=== PATIENT | female | born 1955 | race African-American/Black ===

== ENCOUNTER 2020-07-01 10:56 | Outpatient (REF) | payer MEDICARE, MEDICAID, SELFPAY ==
[2020-07-01 14:35] LABS: Anion Gap 15 (12-20); Blood Urea Nitrogen 8 mg/dL (9-16); Calcium 8.1 mg/dL (8.4-10.2); Carbon Dioxide 27 mmol/L (22-29); Chloride 102 mmol/L (96-108); Estimated Glomerular Filt Rate > 60; Glucose Random 88 mg/dL (60-115); Potassium 3.8 mmol/L (3.3-5.1); Sodium 140 mmol/L (135-145)
[2020-07-01 15:19] LABS: Erythrocyte Sedimentation Rate 6 MM/HR (0-20)
[2020-07-02 05:43] LABS: Lyme Abs Screen <0.90 index
[2020-07-02 09:18] LABS: Syphilis Screen Nonreactive (Nonreactive)
== END 2020-07-01 10:57 | disposition home or self-care (01) ==
LOC: HO.10HDL 10:56
PROVIDERS: Visit Provider Psychiatry & Neurology Neurology
DX: G44.009 Cluster headache syndrome, unspecified, not intractable (principal)
CPT/HCPCS: 36415; 80048; 82550; 85652; 86618; 86780

== ENCOUNTER 2025-03-24 13:56 | Outpatient (AMB) | payer OTHER, MEDICAID, SELFPAY ==
--- NOTE | 2025-03-24 14:17 | A.OFFVIS_ITS ---
Intake Visit Reasons: 6m HPI Comments Details: 68 yo woman with intractable migraine headaches not responsive to multiple meds but responded well to Aimovig. Apparently she changed her insurance recently and Aimovig was not give to her. She required another approval. Without it, her head aches were happening again. She c/o of a headache every and all day. Her eyes were also hurting. [facility] Medical History (Updated 03/24/25 @ 14:19 by Heidi Ramos MD) Optic neuritis Blurred vision Migraine Asthma Review of Systems Narrative Every day headache Sleep: not at all. Every night 2-3 hrs of sleep Breathing: so so Mood: Not good, and angry Physical Exam Neuro Other: Mental Status: Alert and oriented to person, place, and time. Normal attention. Normal spontaneous speech, fluency, and comprehension. Cranial Nerves: CN II: Visual kaplan full to confrontation, visual acuity intact. CN III, IV, : Pupils equal, round, reactive to light and accommodation. Extraocular movements are normal. CN V: Facial sensation is normal. CN VII: Facial movements symmetrical. CN VIII: Hearing intact to bedside conversation is normal. CN IX, X: Palate elevates symmetrically. CN XI: Shoulder shrug and head turn symmetrical. CN XII: Tongue midline without atrophy or fasciculations. Motor: Deep tendon reflexes are absent. She is in a wheelchair. Extrapyramidal: Full facial expressions and blinking. No rigidity. Movements are appropriate with no tremor or abnormality. Speech: Normal; no dysarthria or tremor. Assessment & Plan Assessment & Plan (1) Migraine: Comment: Meds tried: verapamil, topiramate, gabapentin, duloxetine, fiorecet, tizanidine, baclofen, propranolol MRI brain at [facility] in October of 2013 WWO: minimal punctate WM hyperintensities. MRI brain WWO at [facility] in Jun 2020: mild to mod MVD Code(s): G43.909 - Migraine, unspecified, not intractable, without status migrainosus Category: Medical Qualifiers: Migraine type: without aura Status migrainosus presence: without status migrainosus Intractability: intractable Qualified Code(s): G43.019 - Migraine without aura, intractable, without status migrainosus Plan Impression: a: Chronic migraine/tension type headache b: Insomnia Rec: a: Aimovig 140mg SC every month, which has helped her while multiple other meds did not b: Amitryptiline 25mg one at night for sleep Medications: New amitriptyline 25 mg PO BEDTIME 90 tabs 0RF erenumab-aooe (Aimovig Autoinjector) 140 mg subcut QMONTH 1 mL 5RF Coding Level of Care Code Est Pt Level 4 (95709) Diagnoses Intractable migraine without aura and without status migrainosus G43.019 Migraine type: without aura Status migrainosus presence: without status migrainosus Intractability: intractable
--- OUTSIDE RECORDS SUMMARY | 2025-03-24 18:19 | XMS_ITS | Encounter Summary ---
Author Organization [facility] Address [address] [place] [address] Care Team Providers Care Wastewater Treatment Supervisor Name Role Phone Alice Trinh MD Primary Care Provider [phone] Encounter Details Date Type Department Care Team (Late st Contact Info) Description 03/14/2025 Lab Requisition [facility] - Main Lab [address] [facility] [place] [address] Ej Damon MD [address] [place] [address] [address] [place], [address] Chronic obstructive pulmonary disease, unspecified (CMS/HCC V24, CMS/HCC V28) Social History Tobacco Use Types Packs/Day Years Used Date Smoking Tobacco: Former Cigarettes 1 51.3 S tarted: 1973 Smokeless Tobacco: Never Alcohol Use Standard Drinks/Week Comments Not Currently 2.5 (1 standard drink = 0.6 oz p ure alcohol) Housing Instability Answer Date Recorde d Are you worried that in the next 2 months you may not have stable housing? No 10/22/2024 Food Access & Nutrition Answer Date Rec orded Do you have access to a vari ety of food including fruits and vegetables? Yes 10/22/2024 Health Literacy Answer Date Recorded How often do you need to hav e someone help you when you read instructions, pamphlets, or other written material from your doctor or pharmacy? Never 10/22/2024 Caregiver: How often do you need to have someone help you when you read instructions, pamphlets, or other written material from your doctor or pharmacy? Not on file 10/22/2024 Financial Risk Answer Date Recorded How hard is it for you to pa y for the very basics like food, housing, medical care, and air conditioning / heating? Somewhat hard 10/22/2024 Transportation Answer Date Recorded Has the lack of transportati on kept you from meetings, work, or from getting things needed for daily living? No Has the lack of transportati on kept you from medical appointments or from getting medications? Yes 10/22/2024 Social Isolation Answer Date Recorded How often do you feel lonely or isolated from those around you? Sometimes 10/22/2024 Food Risk Answer Date Recorded Within the past 12 months we worried whether our food would run out before we got money to buy more. Never true 10/22/2024 Within the past 12 months th e food we bought just didn't last and we didn't have money to get more. Never true 10/22/2024 Dependent Care Answer Date Recorded Do you need help finding or paying for care for your loved ones. For example, child therapist or elderly care for an older adult? No 10/22/2024 Education Answer Date Recorded Do you think completing more education or training, like finishing a GED, going to college, or learning a trade, would be helpful for you? No 10/22/2024 Employment and Income Answer Date Recor ded During the last four weeks, have you been actively looking for work? No 10/22/2024 Living Situation Answer Date Recorded What is your living situation? Unrecognized valu e 10/22/2024 Interpersonal Safety Answer Date Record ed Physical Abuse Unrecognized value 01/23/2025 Verbal Abuse Unrecognized value 01/23/2025 Comments No Sex and Gender Information Value Date Recorded Sex Assigned at Female 12/26/2024 2:10 PM EDT Legal Sex Female 4:28 AM EST Gender Identity Female 12/26/2024 2:04 PM EDT Sexual Orientation Straight 08/11/2024 10 :42 AM EDT documented as of this encounter Plan of Treatment Upcoming Encounters Date Type Department Care Team (Late st Contact Info) Description 03/31/2025 12:40 PM EST Office Visit [facility] [address] [place] [address] Juan Schneider NP [address] [place] [address] Center [address] [place] [phone] 04/14/2025 2:20 PM EST Office Visit Pulmonology - [place] [address] [place] [phone] Iman Rosado NP [address] [place] [address] documented as of this encounter Procedures Procedure Name Priority Date/Time Associated Diagnosis Comments COMPLETE BLOOD COUNT Routine 03/16/2025 5:55 AM EDT Chronic obstructive pulmonary disease, unspecified ([facility]/HCC V24, [facility] V28) BASIC METABOLIC PANEL Routine 03/16/2025 5:55 AM EDT Chronic obstructive pulmonary disease, unspecified (CMS/HCC V24, CMS/HCC V28) documented in this encounter Results * (ABNORMAL) Complete blood count (03/16/2025 5:55 AM EDT) [facility] WBC 9.5 4.8 - 10.8 K/mcL LAB HEMETOLOGY METHOD 03/16/2025 11:31 AM T [facility] RBC 3.60(L) 3.80 - 4.80 M/mcL LAB HEMETOLOGY METHOD 03/16/2025 11:31 AM [facility] Hemoglobin 10.5(L) 11.5 - 16.0 g/dL LAB HEMETOLOGY METHOD 03/16/2025 11:31 AM [facility] Hematocrit 33.5(L) 35.0 - 47.0 % LAB HEMETOLOGY METHOD 03/16/2025 11:31 AM T [facility] MCV 94.4 79.0 - 98.0 FL LAB HEMETOLOGY METHOD 03/16/2025 11:31 AM EDT [facility] MCH 29.6 27.0 - 32.0 pcg LAB HEMETOLOGY METHOD 03/16/2025 11:31 AM EDT [facility] MCHC 31.3(L) 32.0 - 37.0 g/dL LAB HEMETOLOGY METHOD 03/16/2025 11:31 AM EDT [facility] RDW 16.4(H) 11.0 - 15.0 % LAB HEMETOLOGY METHOD 03/16/2025 11:31 AM EDT [facility] Platelets 294 130 - 400 K/mcL LAB [facility]OLOG[facility]25 [facility] MPV 8.7 7.0 - 11.0 FL LAB HEMETOLOGY METHOD 03/16/2025 11:31 AM EDT [facility] NRBC 0.0 <1.0 % LAB HEMETOLOGY METHOD 03/16/2025 11:31 AM [facility] NRBC Absolute 0.00 <0.10 K/mcL LAB HEMETOLOGY METHOD 03/16/2025 11:31 AM [facility] Blood Venous blood specimen / Unknown Venipuncture / Unknown 03/16/2025 5:55 AM EDT 03/16/2025 11:14 AM EDT us Ej Damon MD LAB BLOOD ORDERABLES Final Resul t [facility] [address] [place] [address], * Basic metabolic panel (03/16/2025 5:55 AM EDT) Sodium 145 133 - 145 mmol/L LAB CHEMISTRY METHOD 03/16/2025 12:31 PM [facility] Potassium 3.9 3.5 - 5.5 mmol/L LAB CHEMISTRY METHOD 03/16/2025 12:31 PM [facility] Chloride 110 96 - 110 mmol/L LAB CHEMISTRY METHOD 03/16/2025 12:31 PM [facility] CO2 27 21 - 32 mmol/L LAB CHEMISTRY METHOD 03/16/2025 12:31 PM [facility] Anion Gap 8 3 - 11 LAB CHEMISTRY METHOD 03/16/2025 12:31 PM [facility] Glucose 76 70 - 100 mg/dL LAB CHEMISTRY METHOD 03/16/2025 12:31 PM [facility] BUN 22 5 - 25 mg/dL LAB CHEMISTRY METHOD 03/16/2025 12:31 PM [facility] Creatinine 0.96 0.50 - 1.10 mg/dL LAB CHEMISTRY METHOD 03/16/2025 12:31 PM [facility] eGFR 65 >=60 mL/min/1. 73m2 LAB CHEMISTRY METHOD 03/16/2025 12:31 PM [facility] Comment:Calculation based on the Chronic Kidney Disease Epidemiology Collaboration (CKD-EPI) equation refit without adjustment for race. BUN/Creatinine Ratio 22.9 LAB CHEMISTRY METHOD 03/16/2025 12:31 PM [facility] Calcium 8.6 8.5 - 10.5 mg/dL LAB CHEMISTRY METHOD 03/16/2025 12:31 PM [facility] Blood Venous blood specimen / Unknown Venipuncture / Unknown 03/16/2025 5:55 AM EDT 03/16/2025 11:14 AM EDT us Ej Damon MD LAB BLOOD ORDERABLES Final Resul t [facility] [address] [place] [address], [place] [phone] documented in this encounter Visit Diagnoses Diagnosis Chronic obstructive pulmonary disease, unspecified (CMS/HCC V24, CMS/HCC V28) documented in this encounter Additional Health Concerns Assessment Noted Time PHQ-9 Depression Total Score: 1 10/23/19 25 4:30 AM EDT documented as of this encounter Care Teams Wastewater Treatment Supervisor Relationship Specialty Start Date End Date Alice Trinh MD [address] [place] [address] PCP - General Internal Medicine 02/24/25 documented as of this encounter
--- OUTSIDE RECORDS SUMMARY | 2025-03-24 18:19 | XMS_ITS | Encounter Summary ---
Author Organization [facility] Address [address] [place] [address] Care Team Providers Care Operations Clerk Name Role Phone Alice Trinh MD Primary Care Provider [phone] Encounter Details Date Type Department Care Team (Late st Contact Info) Description 03/11/2025 Lab Requisition [facility] - Main Lab [address] [facility] [place] [address] Ej Damon MD [address] [place] [address] [address] [place], [address] Chronic obstructive pulmonary disease, unspecified (CMS/HCC [...] for your loved ones. For example, child care development specialist or elderly care for an older adult? [...] Description 03/31/2025 12:40 PM EST Office Visit [facility] [address] [place] [address] Juan Schneider NP Medical [facility] [address] [place] [phone] 04/14/2025 2:20 PM EST Office Visit Pulmonology - [place] [address] [place] [address] Iman Rosado NP [address] [place] [address] documented as of this encounter Procedures Procedure Name Priority Date/Time Associated Diagnosis Comments COMPLETE BLOOD COUNT Routine 03/11/2025 5:15 AM EDT Chronic obstructive pulmonary disease, unspecified ([facility]/HCC V24, CMS/HCC V28) COMPREHENSIVE METABOLIC PANEL Routine 03/11/2025 5:15 AM EDT Chronic obstructive pulmonary disease, unspecified (CMS/HCC V24, CMS/HCC V28) documented in this encounter Results * (ABNORMAL) Comprehensive metabolic panel (03/11/2025 5:15 AM EDT) Sodium 140 133 - 145 mmol/L LAB CHEMISTRY METHOD 03/11/2025 10:51 AM [facility] Potassium 4.2 3.5 - 5.5 mmol/L LAB CHEMISTRY METHOD 03/11/2025 10:51 AM [facility] Chloride 106 96 - 110 mmol/L LAB CHEMISTRY METHOD 03/11/2025 10:51 AM [facility] CO2 28 21 - 32 mmol/L LAB CHEMISTRY METHOD 03/11/2025 10:51 AM [facility] Anion Gap 6 3 - 11 LAB CHEMISTRY METHOD 03/11/2025 10:51 AM [facility] Glucose 83 70 - 100 mg/dL LAB CHEMISTRY METHOD 03/11/2025 10:51 AM [facility] BUN 17 5 - 25 mg/dL LAB CHEMISTRY METHOD 03/11/2025 10:51 AM [facility] Creatinine 0.80 0.50 - 1.10 mg/dL LAB CHEMISTRY METHOD 03/11/2025 10:51 AM [facility] eGFR 81 >=60 mL/min/1. 73m2 LAB CHEMISTRY METHOD 03/11/2025 10:51 AM [facility] Comment:Calculation based on the Chronic Kidney Disease Epidemiology Collaboration (CKD-EPI) equation refit without adjustment for race. BUN/Creatinine Ratio 21.3 LAB CHEMISTRY METHOD 03/11/2025 10:51 AM [facility] Calcium 8.6 8.5 - 10.5 mg/dL LAB CHEMISTRY METHOD 03/11/2025 10:51 AM [facility] AST (SGOT) 21 10 - 42 unit/L LAB CHEMISTRY METHOD 03/11/2025 10:51 AM [facility] ALT (SGPT) 34 10 - 60 unit/L LAB CHEMISTRY METHOD 03/11/2025 10:51 AM [facility] Alkaline Phosphatase 54 42 - 121 unit/L LAB CHEMISTRY METHOD 03/11/2025 10:51 AM [facility] Total Protein 5.1(L) 6.0 - 8.0 g/dL LAB CHEMISTRY METHOD 03/11/2025 10:51 AM [facility] Albumin 2.9(L) 3.2 - 5.0 g/dL LAB CHEMISTRY METHOD 03/11/2025 10:51 AM [facility] Total Bilirubin 0.2 0.0 - 1.4 mg/dL LAB CHEMISTRY METHOD 03/11/2025 10:51 AM [facility] Blood Venous blood specimen / Unknown Venipuncture / Unknown 03/11/2025 5:15 AM EDT 03/11/2025 9:37 AM EDT us Ej Damon MD LAB BLOOD ORDERABLES Final Resul t [facility] [address] [place] [address], [place] [phone] * (ABNORMAL) Complete blood count (03/11/2025 5:15 AM EDT) WBC 13.0(H) 4.8 - 10.8 K/mcL LAB HEMETOLOGY METHOD 03/11/2025 9:55 AM EDT [facility] RBC 4.00 3.80 - 4.80 M/mcL LAB HEMETOLOGY METHOD 03/11/2025 9:55 AM EDT [facility] Hemoglobin 11.7 11.5 - 16.0 g/dL LAB HEMETOLOGY METHOD 03/11/2025 9:55 AM EDT [facility] Hematocrit 37.0 35.0 - 47.0 % LAB HEMETOLOGY METHOD 03/11/2025 9:55 AM EDT [facility] MCV 93.0 79.0 - 98.0 FL LAB HEMETOLOGY METHOD 03/11/2025 9:55 AM EDT [facility] MCH 29.4 27.0 - 32.0 pcg LAB HEMETOLOGY METHOD 03/11/2025 9:55 AM T [facility] MCHC 31.6(L) 32.0 - 37.0 g/dL LAB HEMETOLOGY METHOD 03/11/2025 9:55 AM EDT [facility] RDW 15.4(H) 11.0 - 15.0 % LAB HEMETOLOGY METHOD 03/11/2025 9:55 AM EDT [facility] Platelets 323 130 - 400 K/mcL LAB HEMETOLOGY METHOD 03/11/2025 9:55 AM EDT [facility] MPV 8.7 7.0 - 11.0 FL LAB HEMETOLOGY METHOD 03/11/2025 9:55 AM EDT [facility] NRBC 0.0 <1.0 % LAB HEMETOLOGY METHOD 03/11/2025 9:55 AM EDT [facility] NRBC Absolute 0.00 <0.10 K/mcL LAB HEMETOLOGY METHOD 03/11/2025 9:55 AM EDT [facility] Blood Venous blood specimen / Unknown Venipuncture / Unknown 03/11/2025 5:15 AM EDT 03/11/2025 9:37 AM EDT us Ej Damon MD LAB BLOOD ORDERABLES Final Resul t [facility] [address] [place] [address], documented in this encounter Visit Diagnoses Diagnosis Chronic obstructive pulmonary disease, unspecified (CMS/HCC V24, CMS/HCC V28) documented in this encounter Additional Health Concerns Assessment Noted Time PHQ-9 Depression Total Score: 1 10/23/19 25 4:30 AM EDT documented as of this encounter Care Teams Operations Clerk Relationship Specialty Start Date End Date Alice Trinh MD [address] [place] [address] PCP - General Internal Medicine 02/24/25 documented as of this encounter
--- OUTSIDE RECORDS SUMMARY | 2025-03-24 18:19 | XMS_ITS | Encounter Summary ---
[facility] Address [address] [place] [address] Care Team Providers Care Loom Changeover Operator Name Role Phone Alice Trinh MD Primary Care Provider [phone] Reason for Visit * Reason Onset Date Comments Med Refill 03/20/2025 Encounter Details Date Type Department Care Team (Late st Contact Info) Description 03/20/2025 Telephone Pulmonology - [place] [address] [place] [address] Iman Rosado, NKECHI [address] [place] [address] Social History Tobacco Use Types Packs/Day Years [...] care for your loved ones. For example, early childhood assistant or elderly care for an older adult? [...] AM EDT documented as of this encounter Progress Notes * Iman Rosado NP - 03/23/2025 6:41 PM EDT Please call [facility] or patient, her rehab need to send form with medications she is taken that need to be re prescribed while in their care and send us paperwork to signed. You can give them list ofpulmonary medications she is on. Albuterol(inhaler), azithromycin 250 Three times per week, Deliresp 500mcg daily, Trelegy 100mcg daily, Tezspire every 28 days injection, Montelukast 10mg nightly, loratidine 10 mg daily, Flonase 2 spray daily. * Ayana Gallagher - 03/20/2025 3:03 PM EDT Patient is calling because she is at rehab facility [facility] . She stated she is feeling out of breath and she needs medication. She told her that the facility will not prescribe anything until provider gives the okay. She stated the doctor told her that provider needed to send a prescription and let them know she is okay to take medication. She stated she can be called at her number with any questions . She also stated she got pneumonia from being there . She was diagnosed with fibromatosis and bakers cyst behind the knee. She stated she is in pain from her chest and she can't ask her pcp because her pcp left. She needs to find a new one . Please advise documented in this encounter Plan of Treatment Upcoming Encounters Date Type Department Care Team (Late st Contact Info) Description 03/31/2025 12:40 PM EST Office Visit [facility] [address] [facility] [place] [phone] Juan Schneider NP [address] [place] [address] [address] [place] [phone] 04/14/2025 2:20 PM EST Office Visit Pulmonology - [place] [address] [place] [phone] Iman Rosado NP [address] [place] [address] documented as of this encounter Visit Diagnoses Not on filedocumented in this encounter Additional Health Concerns Assessment Noted Time PHQ-9 Depression Total Score: 1 10/23/19 25 4:30 AM EDT documented as of this encounter Care Teams Loom Changeover Operator Relationship Specialty Start Date End Date Alice Trinh MD [address] [place] [phone] PCP - General Internal Medicine 02/24/25 documented as of this encounter
--- OUTSIDE RECORDS SUMMARY | 2025-03-24 18:19 | XMS_ITS | Clinical Summary ---
Author Organization [facility] Address [address] [facility] [address] [place] [address] Phone Care Team Providers Care Sales Support Assistant Name Role Phone Ethan Pérez MD Primary Care Provider [phone] Social History Tobacco Use Types Packs/Day Years Used Date Smoking Tobacco: Never Assessed Education Answer Date Recorded Are you interested in more education? Not on benji e 02/05/2023 Are you concerned about learning? Not on file 02/05/2023 No 02/05/2023 No 02/05/2023 Digital Access Answer Date Recorded No 02/05/2023 No 02/05/2023 Reliable internet access at home? Not on file 02/05/2023 Device with a working camera? Not on file Comments Unknown Sex and Gender Information Value Date Recorded Sex Assigned at Female 09/07/2023 3:01 PM EDT Legal Sex Female 11:28 AM EDT Gender Identity Female 09/07/2023 3:01 PM EDT Sexual Orientation Straight 09/07/2023 3: 01 PM EDT Plan of Treatment Health Maintenance Due Date Last Done Comments Adult Td,Tdap Booster 1957 LIPID PANEL 1957 DEPRESSION SCREENING 1969 SMOKING Hx and SMOKELESS TOB ACCO SCREENING 1970 HEPATITIS C SCREENING 12/08/1975 MAMMOGRAM 1997 COLOGUARD 2002 COLONOSCOPY 2002 COLORECTAL CANCER SCREENING 2002 FIT TEST 2002 FOBT 2002 SIGMOIDOSCOPY 2002 VIRTUAL COLONOSCOPY 2002 PNEUMOCOCCAL VACCINES (50+ y ears) (1 of 1 - PCV) 12/08/2007 ZOSTER VACCINES (1 of 2) 12/08/2007 OSTEOPOROSIS SCREENING INITI AL (ONE-TIME) 2022 INFLUENZA VACCINE (#1) 2024 COVID-19 VACCINE (1 - 2024-2 6 season) 2025 RSV VACCINE (1 - 1-dose 75+ series) 2032 HEPATITIS A VACCINES Aged Out No long er eligible based on patient's age to complete this topic HIB VACCINES Aged Out No longer eligi ble based on patient's age to complete this topic MENINGOCOCCAL VACCINES (ACWY) Aged Out No longer eligible based on patient's age to complete this topic MENINGOCOCCAL VACCINES (B) Aged Out N o longer eligible based on patient's age to complete this topic Medical Devices Not on file Insurance [employer] PPO MEDICARE REPLACEMENT [address] MEDICARE PART A & B [employer] O MEDICARE REPLACEMENT Member Subscriber Plan / Payer (Ef fective 2021-Present) Name:Shelby Wilkins Relation to Subscriber:Self Name:Shelby Wilkins Payer ID:[id number] ([facility]) Type:Medicare Address: [address] MEDICARE PART A & B HUMAN PPO MEDICARE REPLACEMENT Member Subscriber Plan / Payer (Ef fective 2021-Present) Name:Shelby Wilkins Relation to Subscriber:Self Name:Shelby Wilkins Payer ID:[id number] (NA) Type:Medicare Address: [address] MEDICARE PART A & B [employer] O MEDIC[place]AC[place] PART A & B [employer] [place]IC[place] RE[place] A & B [employer] PPO MEDICARE REPLACEMENT Member Subscriber Plan / Payer (Ef fective 2021-Present) Name:Shelby Wilkins Relation to Subscriber:Self Name:Shelby Wilkins Payer ID:[id number] ([employer]) Type:Medicare Address: [address] MEDICARE PART A & B Care Teams Sales Support Assistant Relationship Specialty Start Date End Date Ethan Pérez MD [address] [place] [address] PCP - General Internal Medicine 08/30/23 Additional Source Comments The information contained in this document represents components of the legal health record. It is not the complete legal health record.[facility]
--- OUTSIDE RECORDS SUMMARY | 2025-03-24 18:19 | XMS_ITS | Encounter Summary ---
Author Organization [facility] Address [address] [place] [address] Care Team Providers Care Building Tech Name Role Phone Alice Trinh MD Primary Care Provider [phone] Encounter Details Date Type Department Care Team (Late st Contact Info) Description 03/20/2025 Lab Requisition [facility] - Main Lab [address] [facility] [place] [address] Ej Damon MD [address] [place] [address] [address] [place], [address] Chronic obstructive pulmonary disease, unspecified (CMS/HCC [...] care for your loved ones. 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 [...] Description 03/31/2025 12:40 PM EST Office Visit [facility] [address] [place] [address] Juan Schneider NP [facility] [address] [place] [phone] 04/14/2025 2:20 PM EST Office Visit Pulmonology - [place] [address] [place] [address] Iman Rosado NP [address] [place] [address] documented as of this encounter Procedures Procedure Name Priority Date/Time Associated Diagnosis Comments COMPLETE BLOOD COUNT Routine 03/23/2025 5:58 AM EDT Chronic obstructive pulmonary disease, unspecified (CMS/HCC V24, CMS/HCC V28) BASIC METABOLIC PANEL Routine 03/23/2025 5:58 AM EDT Chronic obstructive pulmonary disease, unspecified (CMS/HCC V24, CMS/HCC V28) documented in this encounter Results * (ABNORMAL) Basic metabolic panel (03/23/2025 5:58 AM EDT) Sodium 141 133 - 145 mmol/L LAB CHEMISTRY METHOD 03/23/2025 1:52 PM [facility] Potassium 4.1 3.5 - 5.5 mmol/L LAB CHEMISTRY METHOD 03/23/2025 1:52 PM [facility] Chloride 107 96 - 110 mmol/L LAB CHEMISTRY METHOD 03/23/2025 1:52 PM [facility] CO2 27 21 - 32 mmol/L LAB CHEMISTRY METHOD 03/23/2025 1:52 PM [facility] Anion Gap 7 3 - 11 LAB CHEMISTRY METHOD 03/23/2025 1:52 PM [facility] Glucose 129(H) 70 - 100 mg/dL LAB CHEMISTRY METHOD 03/23/2025 1:52 PM EDT [facility] BUN 19 5 - 25 mg/dL LAB CHEMISTRY METHOD 03/23/2025 1:52 PM EDT [facility] Creatinine 0.98 0.50 - 1.10 mg/dL LAB CHEMISTRY METHOD 03/23/2025 1:52 PM EDT [facility] eGFR 63 >=60 mL/min/1. 73m2 LAB CHEMISTRY METHOD 03/23/2025 1:52 PM EDT [facility] Comment:Calculation based on the Chronic Kidney Disease Epidemiology Collaboration (CKD-EPI) equation refit without adjustment for race. BUN/Creatinine Ratio 19.4 LAB CHEMISTRY METHOD 03/23/2025 1:52 PM EDT [facility] Calcium 8.6 8.5 - 10.5 mg/dL LAB CHEMISTRY METHOD 03/23/2025 1:52 PM EDT [facility] Blood Venous blood specimen / Unknown Venipuncture / Unknown 03/23/2025 5:58 AM EDT 03/23/2025 11:26 AM EDT us Ej Damon MD LAB BLOOD ORDERABLES Final Resul t [facility] [address] [place] [address], * (ABNORMAL) Complete blood count (03/23/2025 5:58 AM EDT) WBC 5.6 4.8 - 10.8 K/mcL LAB HEMETOLOGY METHOD 03/23/2025 12:27 PM EDT [facility] RBC 3.60(L) 3.80 - 4.80 M/mcL LAB HEMETOLOGY METHOD 03/23/2025 12:27 PM EDT [facility] Hemoglobin 10.6(L) 11.5 - 16.0 g/dL LAB HEMETOLOGY METHOD 03/23/2025 12:27 PM EDT [facility] Hematocrit 34.4(L) 35.0 - 47.0 % LAB HEMETOLOGY METHOD 03/23/2025 12:27 PM EDT [facility] MCV 95.0 79.0 - 98.0 FL LAB HEMETOLOGY METHOD 03/23/2025 12:27 PM EDT [facility] MCH 29.3 27.0 - 32.0 pcg LAB HEMETOLOGY METHOD 03/23/2025 12:27 PM EDT [facility] MCHC 30.8(L) 32.0 - 37.0 g/dL LAB HEMETOLOGY METHOD [facility] RDW 16.3(H) 11.0 - 15.0 % LAB HEMETOLOGY METHOD 03/23/2025 12:27 [facility] Platelets 277 130 - 400 K/mcL LAB HEMETOLOGY METHOD 03/23/2025 12:27 PM EDT [facility] MPV 8.8 7.0 - 11.0 FL LAB HEMETOLOGY METHOD 03/23/2025 12:27 [facility] NRBC 0.0 <1.0 % LAB HEMETOLOGY METHOD 03/23/2025 12:27 PM EDT [facility] NRBC Absolute 0.00 <0.10 K/mcL LAB HEMETOLOGY METHOD 03/23/2025 12:27 PM [facility] Blood Venous blood specimen / Unknown Venipuncture / Unknown 03/23/2025 5:58 AM EDT 03/23/2025 11:26 AM EDT us Ej Damon MD LAB BLOOD ORDERABLES Final Resul t [facility] [address] [place] [address], documented in this encounter Visit Diagnoses Diagnosis Chronic obstructive pulmonary disease, unspecified (CMS/HCC V24, CMS/HCC V28) documented in this encounter Additional Health Concerns Assessment Noted Time PHQ-9 Depression Total Score: 1 10/23/19 25 4:30 AM EDT documented as of this encounter Care Teams Building Tech Relationship Specialty Start Date End Date Alice Trinh MD [address] [place] [address] PCP - General Internal Medicine 02/24/25 documented as of this encounter
--- OUTSIDE RECORDS SUMMARY | 2025-03-24 18:19 | XMS_ITS | Clinical Summary ---
Author Organization [address] Address [address] [place] [address] Care Team Providers Care Line Haul Truck Driver Name Role Phone Unavailable Primary Care Provider Unavailabl e Social History Tobacco Use Types Packs/Day Years Used Date Smoking Tobacco: Never Assessed Comments Unknown Sex and Gender Information Value Date Recorded Sex Assigned at Not on file Legal Sex Female 9:32 AM EDT Gender Identity Not on file Sexual Orientation Not on file Plan of Treatment Health Maintenance Due Date Last Done Comments HIV screening 1970 Hepatitis C screening 12/08/1975 Tetanus adult (Td q 10,TDAP once) 1977 Breast cancer screening 1997 Lipid disorder screening 1997 Colon cancer screening, Colonoscopy 2002 Diabetes screening 2002 Pneumococcal Vaccine (50+ ye ars) (1 of 1 - PCV) 12/08/2007 Shingles vaccine (Shingrix) (1 of 2 - Shingrix (RZV) 2 Dose Standard Series) 12/08/2007 Osteoporosis screening (bone density) 2022 Influenza vaccine 12/26/2024 Covid-19 vaccine series ( - 2024- season) 2025 RSV Immunization (1 - 1-dose 75+ series) 2032 Cervical cancer screening Discontinued Meningococcal B Vaccine Aged Out No l onger eligible based on patient's age to complete this topic Meningococcal Vaccine Aged Out No gurvinder briana eligible based on patient's age to complete this topic Insurance MEDICARE MEDICARE MEDICARE
--- OUTSIDE RECORDS SUMMARY | 2025-03-24 18:19 | XMS_ITS ---
Author Name [facility] Organization Unknown History of Medication Use Medication Directions Dispensed Refills Start Date End Date Stat acetaminophen (TYLENOL) 500 mg tablet Take 2 tablets (1,000 mg total) by mouth every 6 (six) hours for 7 days. 08/11/2024 active ibuprofen (ADVIL,MOTRIN) 600 mg tablet Take 1 tablet (600 mg total) by mouth every 6 (six) hours for 5 days. Take 3 hours after tylenol 08/11/2024 active nicotine (NICODERM CQ) 7 mg/[address] 1 patch on the skin 1 (one) time each day at the same time. 07/15/2024 active albuterol HFA (ProAir HFA) 90 mcg/actuation inhaler Inhale 2 puffs by mouth every 4 (four) hours if needed for wheezing or shortness of breath. 06/23/2024 active ipratropium-albuteroL (DUONEB) 0.5-2.5 mg/3 mL nebulizer solution Take 3 mL by nebulization every 6 (six) hours if needed for wheezing or shortness of breath. 06/23/2024 active tezepelumab-ekko (Tezspire) 210 mg/1.91 mL (110 mg/mL) injection Inject 1.9 mL (210 mg total) under the skin every 28 (twenty-eight) days. 06/23/2024 active lidocaine 4 % patch 1 patch 1 (one) time each day. 03/13/2024 aborted lidocaine 4 % patch Apply 1 Patch topically daily. Remove after 12 hours. 03/13/2024 active oxyCODONE (ROXICODONE) 5 mg immediate release tablet Take 1 tablet (5 mg total) by mouth every 6 (six) hours if needed for severe pain. 03/13/2024 active tiotropium (Spiriva Respimat) 2.5 mcg/actuation inhalation spray Inhale 1 puff by mouth 1 (one) time each day. 03/12/2024 active solifenacin (VESICARE) 5 mg tablet Take 1 tablet (5 mg total) by mouth 1 (one) time each day. 03/10/2024 aborted montelukast (SINGULAIR) 10 mg tablet Take 1 tablet (10 mg total) by mouth 1 (one) time each day. 03/10/2024 active solifenacin (VESICARE) 5 mg tablet Take 1 tablet (5 mg total) by mouth 1 (one) time each day. 03/10/2024 active docusate sodium (COLACE) 100 mg capsule Take 1 capsule (100 mg total) by mouth 2 (two) times a day. 02/22/2024 active polyethylene glycol (Miralax) 17 gram/dose oral powder Take 17 g by mouth daily. 02/22/2024 active traMADoL (ULTRAM) 50 mg tablet Take 1 tablet (50 mg total) by mouth every 6 (six) hours if needed for moderate pain. 02/22/2024 active mometasone (ELOCON) 0.1 % cream Apply to eczema daily 01/21/2024 active azithromycin (ZITHROMAX) 250 mg tablet Take 1 tablet (250 mg total) by mouth 3 (three) times a week. 12/14/2023 active fluticasone furoate-vilanteroL (Breo Ellipta) 200-25 mcg/dose inhaler Inhale 1 puff by mouth 1 (one) time each day. 12/13/2023 active acetaminophen (TYLENOL 8 HOUR) 650 mg 8 hr tablet Take 1 tablet (650 mg total) by mouth every 8 (eight) hours if needed for mild pain. 10/24/2023 active meloxicam (MOBIC) 15 mg tablet Take 1 tablet (15 mg total) by mouth 1 (one) time each day if needed for mild pain. 10/16/2023 active ofloxacin (OCUFLOX) 0.3 % ophthalmic solution 1 drop to both eyes 4 times a day for 5 to 7 days 10/02/2023 active capsaicin cream (CAPZASIN-HP) 0.1 % cream cream Apply 1 Film topically daily as needed (leg pain). Wash hands after ralph. Avoid genitals, face 09/13/2023 active ergocalciferol (VITAMIN D-2) 1,250 mcg (50,000 unit) capsule Take 1 Capsule by mouth once a week for 120 days. 08/10/2023 active sodium chloride-aloe vera ([place] Saline) gel topical gel 0.5 Inches by Nasal route as needed (nasal dryness). 05/14/2023 active cholecalciferol (Dialyvite Vitamin D3 Max) 1,250 mcg (50,000 unit) tablet Take 1 tablet (50,000 Units total) by mouth 1 (one) time per week. 03/27/2023 active lisinopriL (PRINIVIL,ZESTRIL) 5 mg tablet Take 1 tablet (5 mg total) by mouth 1 (one) time each day. 03/27/2023 active pantoprazole (PROTONIX) 40 mg EC tablet Take 1 tablet (40 mg total) by mouth 1 (one) time each day. 03/27/2023 active albuterol HFA (PROAIR HFA ; PROVENTIL HFA ; VENTOLIN HFA) 90 mcg/actuation inhaler Inhale 2 Puffs into the lungs every 4 hours as needed for Wheezing or Shortness of Breath for up to 30 days 03/21/2023 active fluticasone propionate (FLONASE) 50 mcg/actuation nasal spray Administer 1 spray into each nostril 1 (one) time each day. 2 Sprays by Each Nare route daily. 03/21/2023 active loratadine (CLARITIN) 10 mg tablet Take 1 tablet (10 mg total) by mouth 1 (one) time each day. 03/21/2023 active nicotine polacrilex (COMMIT) [address] 1 Lozenge inside cheek every 2 hours as needed for Smoking cessation. 03/21/2023 active aspirin 81 mg EC tablet Take 1 tablet (81 mg total) by mouth 1 (one) time each day. 03/08/2023 active ketorolac (ACULAR) 0.5 % ophthalmic solution 03/05/2023 active amLODIPine (NORVASC) 10 mg tablet Take 1 tablet (10 mg total) by mouth 1 (one) time each day. 02/03/2023 active butalbital-acetaminop hen-caffeine (FIORICET, ESGIC) 50-325-40 mg per tablet TAKE 2 TABLETS BY MOUTH EVERY DAY NEEDED FOR HEADACHE 11/20/2022 active betamethasone valerate (VALISONE) 0.1 % ointment Apply a thin layer to affected area twice daily for up to 2 weeks 10/19/2022 active erenumab-aooe (Aimovig Autoinjector) 140 mg/mL injection Inject 1 mL (140 mg total) under the skin. Inject 140mg subqutaenously on the 21st day of the month 09/17/2022 active roflumilast (DALIRESP) 500 mcg tablet Take 1 tablet (500 mcg total) by mouth 1 (one) time each day. 02/10/2021 active Allergies Allergen Reaction Severity Comment Documented Date Source Statu s IODINATED CONTRAST MEDIA ITCHING 06/11/2024 [facility] active PENICILLIN G POTASSIUM RASH 03/27/2024 [facility] active MEPOLIZUMAB OTHER Other reaction(s): OTHER Blurry vision,Blurry vision,Other Reaction(s): OTHER 08/23/2021 [facility] active PENICILLINS RASH 07/19/2005 [facility] active Problems Problem Status Onset Date Problem Type Date of Resolution Source Dyspnea on exertion active 2024-01-14 ProblemAct [facility] Scalp psoriasis active 2013-03-[address] [facility] Cataract of both eyes active 2023-03-08 ProblemAct [facility] Chronic pain syndrome active 2024-01-14 ProblemAct [facility] Bone infarction of right leg active 2024-03-27 ProblemAct [facility] Primary hypertension active 2009-10-07 ProblemAct [facility] LIZZY (obstructive sleep apnea) active 2024-01-22 ProblemAct [facility] Gastritis due to Helicobacter species active 2016-02-23 ProblemAct [facility] Lower GI bleeding active 2024-01-22 ProblemAct [facility] Metabolic alkalosis with respiratory acidosis active 2024-01-14 ProblemAct [facility] Anxiety active 2024-01-14 ProblemAct [facility] 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 active 2024-01-14 ProblemAct [facility] Asthma, moderate persistent, poorly-controlled active 2015-06-15 ProblemAct [facility] GERD (gastroesophageal reflux disease) active 2010-11-22 ProblemAct [facility] Colon polyp active 2015-08-11 ProblemAct [facility] Palpitation active 2022-04-03 ProblemAct [facility] Class 1 obesity active 2024-01-[address] [facility] Insomnia active 2022-04-03 ProblemAct [facility] Lung nodule active 2015-10-22 ProblemAct [facility] Disease due to severe acute respiratory syndrome coronavirus 2 (SARS-CoV-2) active 2021-08-05 ProblemAct [facility] Intractable chronic cluster headache active 2020-07-20 ProblemAct [facility] Adenomatous polyp of colon active 2016-02-23 ProblemAct [facility] Aleta esophagitis active 2016-10-03 ProblemAct [facility] Asthma active 2023-10-24 ProblemAct [facility] Other chronic sinusitis active 2005-12-01 ProblemAct [facility] Chest pain active 2024-01-14 ProblemAct [facility] Migraine with aura active 2005-07-07 ProblemAct [facility] Tobacco dependence active 2016-10-13 ProblemAct [facility] Lumbago active 2019-11-26 ProblemAct [facility] Cardiovascular stress test abnormal active 2024-01-14 ProblemAct [facility] Ulceration of colon active 2024-01-14 ProblemAct [facility] Depressive disorder active 2024-01-14 ProblemAct [facility] Prediabetes active 2020-03-01 ProblemAct [facility] COPD (chronic obstructive pulmonary disease) active 2016-10-03 ProblemAct [facility] Noncompliance by refusing intervention or support active 2016-10-13 ProblemAct [facility] Hyperglycemia active 2024-01-14 ProblemAct [facility] Hypoventilation active 2024-01-[address] [facility] Hypertriglyceridemia active 2020-03-01 ProblemAct [facility] Immunizations Vaccine Date Source Lot Number Status Influenza trivalent, 0.5mL ( Fluad) 65yo and older 04/24/2023 [facility] [id number] completed Pneumococcal conjugate 20 va lent (Prevnar 20, PCV 20) 2mo and older 04/24/2023 [facility] [id number] comple paula Pfizer SARS-CoV-2 COVID-19, mRNA, LNP-S, preservative free 04/04/2022 [facility] [id number] completed SARS-COV-2 (COVID-19) Vaccine, Unspecified 04/04/2022 [facility] [id number] completed Influenza trivalent, with pr eservative (Fluzone; Afluria) 6mo and older 04/03/2022 [facility] [id number] completed Gigamon (ages 12 & older) DEJA S-CoV-2 COVID-19, mRNA, LNP-S, gloria-sucrose, preservative free 12/19/2021 [id number] completed Pfizer SARS-CoV-2 COVID-19, mRNA, LNP-S, preservative free [id number] Pfizer SARS-CoV-2 COVID-19, mRNA, LNP-S, preservative free 06/27/2021 [facility] UN[facility] completed Pfizer SARS-CoV-2 COVID-19, mRNA, LNP-S, preservative free 09/17/2020 [facility] [id number] completed Pfizer SARS-CoV-2 COVID-19, mRNA, LNP-S, preservative free 08/26/2020 [facility] [id number] completed Influenza, Unspecified 06/27/2020 [facility] co mpleted Influenza trivalent, with pr eservative (Fluzone; Afluria) 6mo and older 02/27/2020 [facility] [id number] completed Influenza trivalent, with pr eservative (Fluzone; Afluria) 6mo and older 05/10/2019 [facility] [id number] completed Influenza trivalent, with pr eservative (Fluzone; Afluria) 6mo and older 02/14/2018 [facility] [id number] completed Influenza trivalent, with pr eservative (Fluzone; Afluria) 6mo and older 01/18/2017 [facility] [id number] completed Tdap Tetanus diptheria acell ular pertussis (Boostrix; Adacel) 7yo and older 11/13/2016 [facility] [id number] completed Influenza Whole 02/26/2016 [facility] UNK completed Influenza trivalent, 0.5mL, preservative free (Fluarix; FluLaval; Fluzone) ages 6mo and older (Afluria) 3 years and older 01/25/2016 [facility] completed Influenza trivalent, with pr eservative (Fluzone; Afluria) 6mo and older 01/21/2016 [facility] [id number] completed Tdap Tetanus diptheria acell ular pertussis (Boostrix; Adacel) 7yo and older 01/21/2016 [facility] [id number] completed Influenza trivalent, with pr eservative (Fluzone; Afluria) 6mo and older 03/05/2015 [facility] [id number] completed Pneumococcal polysaccharide 23 valent (Pneumovax 23) 2yo and older 09/20/2014 [facility] [id number] com pleted Influenza trivalent, with pr eservative (Fluzone; Afluria) 6mo and older 06/02/2014 [facility] [id number] completed Influenza trivalent, with pr eservative (Fluzone; Afluria) 6mo and older 02/11/2013 [facility] UNK completed Influenza trivalent, with pr eservative (Fluzone; Afluria) 6mo and older 03/28/2012 [facility] UNK completed Influenza trivalent, with pr eservative (Fluzone; Afluria) 6mo and older 03/13/2011 [facility] UNK completed Influenza trivalent, with pr eservative (Fluzone; Afluria) 6mo and older 02/19/2008 [facility] [id number] completed Influenza trivalent, with pr eservative (Fluzone; Afluria) 6mo and older 02/18/2007 [facility] [id number] completed Influenza trivalent, with pr eservative (Fluzone; Afluria) 6mo and older 04/12/2005 [facility] BALLK completed Pneumococcal polysaccharide 23 valent (Pneumovax 23) 2yo and older 10/22/2003 [facility] B[facility]K com pleted Td Tetanus diptheria (Tdvax) 7yo and older 10/22/2003 [facility] completed Td, Unspecified 10/22/2003 [facility] BALLK completed Encounters Encounter Type Encounter Reason Primary Diagnosis Location Date Ambulatory [facility] [place] 10/25/2023
--- OUTSIDE RECORDS SUMMARY | 2025-03-24 18:19 | XMS_ITS | Clinical Summary ---
Author Organization [facility] Address [address] [place] [address] Care Team Providers Care Territory Account Executive Name Role Phone Ethan Pérez MD Primary Care Provider [phone] Allergies Active Allergy Reactions Criticality Noted Date Comments Mepolizumab High 08/23/2021 Other reaction(s): OTHER Blurry vision Nitroglycerin 09/04/2018 Penicillins 07/19/2005 Medications Medication Sig Dispensed Refills Start Date End Date Status amLODIPine (NORVASC) tablet 5 mg Take 1 tablet (5 mg total) by mouth daily. 0 10/10/2023 Active aspirin 81 MG EC tablet Take 1 tablet (81 mg total) by mouth daily. 0 03/08/2023 Active betamethasone valerate (VALISONE) 0.1 % ointment Apply a thin layer to affected area twice daily for up to 2 weeks 0 10/19/2022 Active capsaicin (CAPZASIN HP) 0.1 % topical cream Apply 1 Film topically. 0 09/13/2023 Active Cholecalciferol (Dialyvite Vitamin D3 Max) 1.25 MG (18431 UT) TABS Take 1 tablet by mouth once a week. 0 03/27/2023 Active Fluticasone Furoate-Vilanterol (Breo Ellipta) 200-25 MCG/ACT AEPB Inhale 1 puff into the lungs. 0 03/21/2023 Active fluticasone (FLONASE) 50 MCG/ACT nasal spray spray or apply 2 sprays inside Nose. 0 03/21/2023 Active ipratropium-albuterol (DUO-NEB) 0.5-2.5 mg/mL nebulizer 3 mL. 0 2022 Active ketorolac (ACULAR) 0.5 % ophthalmic solution 0 03/05/2023 Active lisinopril (PRINIVIL,ZESTRIL) tablet 5 mg Take 1 tablet (5 mg total) by mouth daily. 0 03/27/2023 Active loratadine (CLARITIN) 10 MG tablet Take 1 tablet (10 mg total) by mouth daily. 0 03/21/2023 Active LORazepam (ATIVAN) 0.5 MG tablet TAKE 1-2 TABLETS 20 MINUTES BEFORE MRI 0 10/05/2023 Active montelukast (SINGULAIR) 10 MG tablet Take 1 tablet (10 mg total) by mouth every night at bedtime. 0 03/21/2023 Active nicotine polacrilex (COMMIT) [address] 1 lozenge (2 mg total) inside cheek. 0 03/21/2023 Active pantoprazole (PROTONIX) 40 MG tablet Take 1 tablet (40 mg total) by mouth daily. 0 03/27/2023 Active roflumilast (DALIRESP) 500 MCG tablet Take 1 tablet (500 mcg total) by mouth daily. 0 02/10/2021 Active Tezepelumab-ekko (Tezspire) 210 MG/1.91ML SOAJ Inject 1 Syringe under the skin. 0 09/26/2023 Active solifenacin (VESICARE) 5 MG tablet Take 1 tablet (5 mg total) by mouth daily. 0 10/01/2023 Active Active Problems Problem Noted Date Diagnosed Date Asthma 10/24/2023 Social History Tobacco Use Types Packs/Day Years Used Date Smoking Tobacco: Never Assessed Sex and Gender Information Value Date Recorded Sex Assigned at Not on file Gender Identity Not on file Sexual Orientation Not on file Job Start Date Occupation Industry Not on file Not on file Not on file Last Filed Vital Signs Vital Sign Reading Time Taken Comments Blood Pressure 136/88 10/29/2023 1:50 PM EDT Pulse 98 10/29/2023 1:50 PM EDT Temperature 36.4 C (97.6 F) 10/29/2023 1:50 PM EDT Respiratory Rate 18 10/29/2023 1:50 PM EDT Oxygen Saturation 95% 10/29/2023 1:50 PM EDT Inhaled Oxygen Concentration - - Weight 85.6 kg (188 lb 11.4 oz) 10/25/2023 1:54 PM EDT Height - - Body Mass Index - - Plan of Treatment Health Maintenance Due Date Last Done Comments Hepatitis C Screening 1957 Depression Screening 1969 Preventative Health Evaluation 12/08/1975 Colon Cancer Screening (Colonoscopy) 2002 Breast Cancer Screening (Mammogram) 12/08/2007 Shingrix-Zoster Vaccine (1 of 2) 12/08/2007 Fall Risk Assessment 2022 Osteoporosis Screening (DEXA Scan) 2022 COVID-19 Vaccine ( season) 2025 04/04/2022, 12/19/2021, 06/27/2021, Additional history exists Influenza Vaccine (#1) 2025 , 04/24/2023, 04/03/2022, Additional history exists DTap / Tdap / Td (3 - Td or Tdap) 11/13/2026 11/13/2016, 01/21/2016, 10/22/2003 RSV Adult > 60+ Yrs or (1 - 1-dose 75+ series) 2032 Pneumococcal Vaccine Completed 04/24/2023, 09/20/2014, 10/22/2003 Hepatitis B Vaccines Aged Out No long er eligible based on patient's age to complete this topic RSV Ped < 20 months Aged Out No longe r eligible based on patient's age to complete this topic Care Teams Territory Account Executive Relationship Specialty Start Date End Date Ethan Pérez MD [address], [place] [id number] PCP - General Internal Medicine 10/15/23
--- OUTSIDE RECORDS SUMMARY | 2025-03-24 18:19 | XMS_ITS | Clinical Summary ---
Author Organization [facility] Address [address] [place] [address] Phone Care Team Providers Care Hull Grinder Name Role Phone Alice Trinh MD Primary Care Provider Allergies Active Allergy Reactions Criticality Noted Date Comments Iodinated Contrast Media Itching Low 06/11/2024 Mepolizumab Other Medium 08/23/2021 Other Reaction(s): OTHER Blurry vision Other reaction(s): OTHER Blurry vision Penicillin G Potassium Rash Low 03/27/2024 Penicillins Rash Low 07/19/2005 Medications mometasone (ELOCON) 0.1 % cream Apply to eczema daily 01/21/20 24 Active roflumilast (DALIRESP) 500 mcg tablet Take 1 tablet (500 mcg total) by mouth 1 (one) time each day. 02/11/20 21 Active butalbital-aceta minophen-caffein e (FIORICET, ESGIC) 50-325-40 mg per tablet 11/21/19 23 Active loratadine (CLARITIN) 10 mg tablet Take 1 tablet (10 mg total) by mouth 1 (one) time each day. 03/21/20 23 Active pantoprazole (PROTONIX) 40 mg EC tablet Take 1 tablet (40 mg total) by mouth 1 (one) time each day. 10/31/20 23 Active lisinopriL (PRINIVIL,ZESTRI L) 5 mg tablet Take 1 tablet (5 mg total) by mouth 1 (one) time each day. 03/27/20 Active fluticasone propionate (FLONASE) 50 mcg/actuation nasal spray Administer 1 spray into each nostril 1 (one) time each day. 2 Sprays by Each Nare route daily. 03/21/20 Active aspirin 81 mg EC tablet Take 1 tablet (81 mg total) by mouth 1 (one) time each day. 03/08/20 Active erenumab-aooe (Aimovig Autoinjector) 140 mg/mL injection Inject 1 mL (140 mg total) under the skin every 21 (twenty-one) days. Inject 140mg subqutaenously on the day of the month 09/18/19 Active betamethasone valerate (VALISONE) 0.1 % ointment Apply a thin layer to affected area twice daily for up to 2 weeks 10/20/19 Active montelukast (SINGULAIR) 10 mg tablet Take 1 tablet (10 mg total) by mouth 1 (one) time each day. 03/10/20 Active UNABLE TO FIND Oxygen Historical (HISTORICAL OXYGEN), Inhale into the lungs. 2L in am and at night. 4L with activity Active sodium chloride-aloe vera (Faison Saline) gel topical gel 0.5 Inches by Nasal route as needed (nasal dryness). 05/14/20 Active tezepelumab-ekko (Tezspire) 210 mg/1.91 mL (110 mg/mL) injectionIndicat ions:Poorly controlled severe persistent asthma without complication (CMS/[facility] V28),Chronic bronchitis, unspecified chronic bronchitis type (CMS/HCC V24, CMS/[facility] V28) Inject 1.9 mL (210 mg total) under the skin every 28 (twenty-eight) days. 1.91 mL 06/23/19 Active fluticasone-umec lidinium-vilante rol (Trelegy Ellipta) 100-62.5-25 mcg inhalerIndicatio ns:Pulmonary emphysema, unspecified emphysema type Inhale 1 puff (100 mcg total) by mouth 1 (one) time each day. Rinse mouth with water after use to reduce aftertaste and incidence of candidiasis. Do not swallow. 1 each 12 10/08/19 25 026 Active azithromycin (ZITHROMAX) 250 mg tabletIndication s:Chronic obstructive pulmonary disease, unspecified COPD type (CMS/HCC V24, CMS/HCC V28) Take 1 tablet (250 mg total) by mouth 3 (three) times a week. 36 tablet 1 11/20/19 25 Active amLODIPine (NORVASC) 10 mg tablet TAKE 1 TABLET BY MOUTH DAILY 90 tablet 1 12/24/19 25 Active albuterol HFA (PROAIR HFA ; PROVENTIL HFA ; VENTOLIN HFA) 90 mcg/actuation inhaler INHALE 2 PUFFS BY MOUTH EVERY 4 (FOUR) HOURS IF NEEDED FOR WHEEZING OR SHORTNESS OF BREATH. 8.5 g 1 01/28/20 25 Active ipratropium-albu teroL (DUONEB) 0.5-2.5 mg/3 mL nebulizer solutionIndicati ons:Pulmonary emphysema, unspecified emphysema type INHALE THE CONTENTS OF 1 AMPULE VIA NEBULIZER EVERY 6 HOURS IF NEEDED FOR WHEEZING OR SHORTNESS OF BREATH. 90 mL 1 01/28/20 25 Active capsaicin cream (CAPZASIN-HP) 0.1 % cream cream Apply topically 2 (two) times a day. 60 g 1 02/03/20 25 Active acetaminophen (Tylenol 8 Hour) 650 mg 8 hr tablet Take 1 tablet (650 mg total) by mouth 2 (two) times a day if needed for mild pain or moderate pain. Do not crush, chew, or split. 20 tablet 02/03/20 25 Active escitalopram (LEXAPRO) 20 mg tablet Take 1 tablet (20 mg total) by mouth 1 (one) time each day. 30 each 5 02/05/20 25 026 Active ergocalciferol (VITAMIN D-2) 1,250 mcg (50,000 unit) capsule Take 1 capsule (50,000 Units total) by mouth 1 (one) time per week. 8 capsule 12/29/19 25 025 Active Problems Problem Noted Date Diagnosed Date HTN (hypertension) 02/18/2025 Bone infarction of right leg (CMS/HCC V24, CMS/H CC V28) 03/27/2024 Bone infarction of left leg (CMS/HCC V24, CMS/ C V28) 03/27/2024 Disease due to severe acute respiratory syndrome coronavirus 2 (SARS-CoV-2) 02/14/2024 Overview (02/18/2025): Problem added by Discern Expert Lower GI bleeding 01/22/2024 LIZZY (obstructive sleep apnea) 01/22/2024 Hyperglycemia 01/14/2024 Hypoventilation 01/14/2024 Lower gastrointestinal hemorrhage 01/14/2024 Depressive disorder 01/14/2024 Dyspnea on exertion 01/14/2024 Cardiovascular stress test abnormal 01/14/2024 Overview (01/22/2024): Cardiovascular stress test abnormal Chest pain 01/14/2024 Chronic pain syndrome 01/14/2024 Class 1 obesity 01/14/2024 Ulceration of colon 01/14/2024 Anxiety 01/14/2024 Assessment & Plan (10/22/2024 5:36 PM EDT): Emotional counseling done today. Will do a trial of Lexapro 5 mg daily. Will monitor thyroid levels. Follow-up in 6 weeks. 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 01/14/2024 Asthma 10/24/2023 Avascular necrosis of bone ([facility]/HCC V24, CMS/HCC V28) 10/16/2023 Acute and chronic respirator y failure with hypoxia ([facility] V24, CMS/HCC V28) 05/28/2023 Cataract of both eyes 03/08/2023 Insomnia 04/03/2022 Palpitation 04/03/2022 Disease due to severe acute respiratory syndrome coronavirus 2 (SARS-CoV-2) 08/05/2021 Overview (01/22/2024): Problem added by Discern Expert Problem added by Discern Expert LIZZY treated with BiPAP 03/22/2021 Overview (01/22/2024): Patient has been seeing by [facility] sleep clinic but not recently. Intractable chronic cluster headache 07/20/2020 Hypertriglyceridemia 03/01/2020 Prediabetes 03/01/2020 Assessment & Plan (10/22/2024 5:36 PM EDT): She will follow diabetic diet. Will monitor A1c levels. Orders: Hemoglobin A1c; Future Lumbago 11/26/2019 Disorder of vein 09/04/2018 Acute exacerbation of chroni c obstructive pulmonary disease ([facility] V24, [facility] V28) 09/04/2018 Gastroesophageal reflux disease without esophagi tis 09/04/2018 Obstructive sleep apnea syndrome 09/04/2018 Essential hypertension 09/04/2018 Noncompliance by refusing intervention or suppor t 10/13/2016 Overview (01/22/2024): 10/13/16 [facility] at 1:32pm reports Patient is refusing visit today but sister states she's feeling okay just sleeping. Tobacco dependence 10/13/2016 COPD (chronic obstructive pu lmonary disease) ([facility] V24, [facility] V28) 10/03/2016 Overview (01/22/2024): Last Assessment & Plan: Patient needs to quit smoking which I have advised her. She is very upset and is not willing to take my advice. Her last pulmonary function test back in February show an FEV1 57% of predicted compatible with stage II COPD. Assessment & Plan (02/02/2025 2:09 PM EDT): No wheezing today. She will continue her current regimen of Trelegy, albuterol, montelukast. She does have DuoNeb nebulizer at home as well. She will follow-up with pulmonology and scheduled to see them next week. Assessment & Plan (10/22/2024 5:36 PM EDT): Patient will continue her current regimen of Trelegy, albuterol, montelukast. She is being monitored by pulmonology. Tong esophagitis ([facility] V24, [facility] V28) 0 10/03/2016 Overview (01/22/2024): EGD 10/02/16 Gastritis due to Helicobacter species 02/23/2016 Adenomatous polyp of colon 02/23/2016 Overview (01/22/2024): rept colonoscopy 3 yrs rept colonoscopy 3 yrs Lung nodule 10/22/2015 Overview (01/22/2024): Last Assessment & Plan: Patient had a recent CT scan of the chest 4 weeks ago when she was in the emergency department that did not show pulmonary nodules. She will need to be reenroll in the lung cancer screening program. Colon polyp 08/11/2015 Overview (01/22/2024): Rectal bleeding dark clots, Hg 13, Hct 41; CN showed int hemorrhoids, patchy right colon ulcers & transverse polyp Asthma, moderate persistent, poorly-controlled 0 06/15/2015 Overview (01/22/2024): Last Assessment & Plan: Patient has poorly controlled asthma. She has history of being responsive to the use of Dupixent. Unfortunately, as I explained Shelby this process require multiple steps in order to obtain the medication. I spoke today with our nurse practitioner Haley regarding how to obtain this medication given the fact that she has seen him multiple times previously. In the meantime she should continue with Breo/Ellipta, Singulair, DuoNebs and Daliresp. Scalp psoriasis 03/20/2013 Overview (01/22/2024): +biopsy 02/2013 for psoriasis. Clobetasol 0.05% cream will be applied first and then Dovonex 0.005% ointment will be applied afterwards. This will be done twice a day GERD (gastroesophageal reflux disease) 1 Primary hypertension 10/07/2009 Other chronic sinusitis 12/01/2005 Migraine with aura 07/07/2005 Overview (01/22/2024): IMO update Resolved Problems Problem Noted Date Diagnosed Date Resolved Date Acute respiratory failure ([facility]/HCC V24, CMS/HCC V28) 05/05/2024 05/08/2024 Encounters Date Type Department Care Team Description 03/20/2025 Lab Requisition [facility] [address] [place] [phone] Ej Damon MD Chronic obstructive pulmonary disease, unspecified ([facility] V24, [facility] V28) 03/20/2025 Telephone Pulmonology - [place] [address] [facility] [address] [place] [phone] Iman Rosado, NKECHI 03/14/2025 Lab Requisition [facility] [address] [place] [phone] Ej Damon MD Chronic obstructive pulmonary disease, unspecified ([facility] V24, [facility] V28) 03/11/2025 Lab Requisition [facility] [address] [place] [phone] Ej Damon MD Chronic obstructive pulmonary disease, unspecified ([facility] V24, [facility] V28) 03/05/2025 Telephone [facility] [address] [facility] [place] [place] [phone] Alice Trinh MD 03/05/2025 Telephone Internal Medicine - [facility] [address] [place], [place] [phone] Alice Trinh MD 03/03/2025 Telephone Internal Medicine - [facility] [address] [place], [place] [phone] Alice Trinh MD 02/26/2025 Telephone [facility] [address] [facility] [place] [place] [phone] Alice Trinh MD 02/23/2025 Results Follow-Up Internal Medicine - [facility] [address] [place], [place] [phone] Trina Lambert NP 02/23/2025 Telephone [facility] - [address] [place] [phone] Billy Weber MD 02/20/2025 Telephone [facility] - [address] [place] [address] Billy Weber MD 02/19/2025 Telephone Internal Medicine - [facility] [address] [place] [phone] Maryjane Watters [place] 02/10/2025 2:20 PM EDT Office Visit Pulmonology - [place] [address] [facility] [address] [place] [phone] Iman Rosado NP Chronic obstructive pulmonary disease with acute exacerbation ([facility] V24, [facility] V28) (Primary Dx); Chronic obstructive pulmonary disease, unspecified COPD type ([facility] V24, [facility] V28); Severe persistent asthma without complication ([facility] V28); Pulmonary emphysema, unspecified emphysema type ([facility] V24, [facility] V28); Lung nodule; LIZZY treated with BiPAP; Class 1 obesity 02/02/2025 1:30 PM EDT [facility] [address] [place], [place] [phone] Ethan Péerz MD Chronic obstructive pulmonary disease, unspecified COPD type ([facility] V24, [facility] V28) (Primary Dx); Coronary artery calcification seen on CAT scan; ABDIEL (acute kidney injury) ([facility] V24); Diffuse arthralgia 02/02/2025 Telephone Internal Medicine - [facility] [address] [facility] [place], [place] [phone] Ethan Pérez MD 01/29/2025 Telephone Internal Medicine - [facility] [address] [place] [address] [phone] Ethan Pérez MD 01/23/2025 10:44 AM EDT Anesthesia Event [facility] [address] [place] [phone] Billy Virgen MD 01/23/2025 10:07 AM EDT - 01/23/2025 11:59 PM EDT Hospital Encounter [facility] [address] [place] [phone] Jonah Lopez MD Johnson, Lorraine, CRNA Dasilva, John E, MD Colon cancer screening Discharge Disposition: Home or Self Care 01/21/2025 1:55 PM EDT - 01/21/2025 11:59 PM EDT Hospital Encounter [facility] CT Scan [address] [place] [address] Personal history of nicotine dependence; Encounter for screening for malignant neoplasm of respiratory organs Discharge Disposition: Home or Self Care 01/21/2025 1:30 PM EDT Office Visit Lung Screening Program - [address] [phone] Mayito Rosario PA Cigarette smoker 12/26/2024 1:46 PM EDT - 12/26/2024 11:59 PM EDT Hospital Encounter [facility] Bone Density [address] [place] [address] Menopause Discharge Disposition: Home or Self Care 12/26/2024 1:46 PM EDT - 12/26/2024 11:59 PM EDT Hospital En[facility] [address] [phone] Encounter for screening mammogram for malignant neoplasm of breast Discharge Disposition: Home or Self Care 12/25/2024 1:15 PM EDT Office Visit Internal Medicine - [address] [phone] Ethan Pérez MD Chronic obstructive pulmonary disease, unspecified COPD type (CMS/HCC V24, CMS/HCC V28) (Primary Dx) from Last 3 Months Immunizations Immunization Administration Dates Next Due Influenza Whole 02/26/2016 Influenza trivalent, 0.5mL ( Fluad) 65yo and older 04/24/2023 Influenza trivalent, 0.5mL ( Fluzone High-dose) 65yo and older 01/16/2025,04/24/2023 Influenza trivalent, 0.5mL, preservative free (Fluarix; FluLaval; Fluzone) ages 6mo and older (Afluria) 3 years and older 01/25/2016 Influenza trivalent, with pr eservative (Fluzone; Afluria) 6mo and older 04/03/2022,02/27/2020,05/10/2019,02/14,01/18/2017,01/21/2016,03/05/2015 ,06/02/2014,02/11/2013,03/28/2012,02/25,02/19/2008,02/18/2007, 5 Influenza, Unspecified 06/27/2020 Pfizer (ages 12 & older) DEJA S-CoV-2 COVID-19, mRNA, LNP-S, gloria-sucrose, preservative free 12/19/2021 Pfizer SARS-CoV-2 COVID-19, mRNA, LNP-S, preservative free 04/04/2022,12/19/2021,06/27/2021,09/17,08/26/2020 Pneumococcal conjugate 20 va lent (Prevnar 20, PCV 20) 2mo and older 01/16/2025,04/24/2023,04/24/2023 Pneumococcal polysaccharide 23 valent (Pneumovax 23) 2yo and older 09/20/2014,10/22/2003 RSV, bivalent, protein subun it RSVpreF, 0.5mL, Preservative Free (Arexvy) 50yo and older 01/16/2025 SARS-COV-2 (COVID-19) Vaccin e, Unspecified 04/04/2022 Td Tetanus diptheria (Tdvax) 7yo and older 10/22/2003 Td, Unspecified 10/22/2003 Tdap Tetanus diptheria acell ular pertussis (Boostrix; Adacel) 7yo and older 11/13/2016,01/21/2016 Surgical History Surgery Date Site/Laterality Comments BLADDER SUSPENSION 1998 PROCEDURE: HISTORICAL BLADDER SUSPENSION OTHER SURGICAL HISTORY age 17 PROCEDURE: [place] OPEN TX CLAVICULAR FRACTURE INTERNAL FIXATION; COMMENT: Left surgery for Fx, fell over rock CERVICAL LAMINECTOMY 05/30/99 PROCEDURE: HISTORICAL CERV LAMINECTOMY; COMMENT: C5-6 ACD&F with osteosynthetic plating by Dr. Mozi Mendoza OTHER SURGICAL HISTORY 2000 PROCEDURE: [place] EXC TUMOR SOFT TISSUE FOOT/TOE SUBFASC <1.5CM; COMMENT: Neuroma resected Left foot, Dr. Keating SINUS SURGERY 12/11/05 PROCEDURE: [place] UNLISTED PROCEDURE ACCESSORY SINUSES; COMMENT: in [place]-Dr. Roly Miller COLONOSCOPY 11/17/08 PROCEDURE: HISTORICAL COLONOSCOPY; COMMENT: hemorrhoids; repeat in ten years FOOT SURGERY 10/2009 PROCEDURE: HISTORICAL FOOT SURGERY; COMMENT: Dr. Hooper-left bunion and neuroma ESOPHAGOGASTRODUODENOSCOPY 09/21/08 PROCEDURE: [place] ESOPHAGOGASTRODUODENOSCOPY TRANSORAL DIAGNOSTIC; COMMENT: esophagitis, gastritis-Hpylori+ ESOPHAGOGASTRODUODENOSCOPY 11/30/10 PROCEDURE: [place] EGD TRANSORAL BIOPSY SINGLE/MULTIPLE; COMMENT: mild antral gastritis COLONOSCOPY 08/07/15 Dr Sandoval PROCEDURE: HISTORICAL COLONOSCOPY; COMMENT: ColonPolyp,Rcolon ulcers,hemorrhoids COLONOSCOPY 02/10/16 Dr Sy PROCEDURE: HISTORICAL COLONOSCOPY; COMMENT: transverse polyps ESOPHAGOGASTRODUODENOSCOPY 02/10/16 Dr Sy PROCEDURE: [place] EGD TRANSORAL BIOPSY SINGLE/MULTIPLE; COMMENT: gastritis ROTATOR CUFF REPAIR 2006 PROCEDURE: HISTORICAL ROTATOR CUFF REPAIR ESOPHAGOGASTRODUODENOSCOPY 10/02/16 Dr Sy PROCEDURE: [place] EGD TRANSORAL BIOPSY SINGLE/MULTIPLE; COMMENT: tong esophagitis Medical History Medical History Date Comments Unspecified asthma(493.90) 07/07/2005 DX:Un specified asthma(493.90) Migraine with aura, without mention of intractable migraine without mention of status migrainosus 07/07/2005 DX:Migraine with aura, w ithout mention of intractable migraine without mention of status migrainosus Bipolar disorder, unspecifie d (CMS/HCC V24, CMS/HCC V28) 11/16/2005 DX:Bipolar disorder, unspec ified ([facility]) Colon polyp 08/11/2015 DX:Colon polyp; COMMENT: Rectal bleeding dark clots, Hg 13, Hct 41; CN showed int hemorrhoids, patchy right colon ulcers & transverse polyp Migraine with aura 07/07/2005 DX:Migraine w ith aura; COMMENT: IMO update History of DVT (deep vein thrombosis) 10/20/2015 DX:History of DVT (deep vein thrombosis) Scalp psoriasis 03/20/2013 DX:Scalp psorias is; COMMENT: +biopsy 02/2013 for psoriasis. Clobetasol 0.05% cream will be applied first and then Dovonex 0.005% ointment will be applied afterwards. This will be done twice a day COPD (chronic obstructive pu lmonary disease) ([facility] V24, [facility] V28) 10/03/2016 DX:COPD (chronic o bstructive pulmonary disease) ([facility]) GERD (gastroesophageal reflu x disease) 11/22/2010 DX:GERD (gastroesophageal re flux disease) Other chronic sinusitis 12/01/2005 DX:Other chronic sinusitis Lung nodule < 6cm on CT 10/22/2015 DX:Lung nodule < 6cm on CT Hypertension 10/07/2009 DX:Hypertension History of esophagogastroduo denoscopy (EGD) 10/03/2016 DX:History of esophagogastroduodenoscopy (EGD); COMMENT: 10/02/2016, awaiting pathology report, suggestive if candidal esophagitis Tong esophagitis ([facility] V24, [facility] V28) 10/03/2016 DX:Tong esophagitis ([facility]) ; COMMENT: EGD 10/02/16 Noncompliance by refusing intervention or support 10/13/2016 DX:Noncompliance by refusing intervention or support; COMMENT: 10/13/16 [facility] at 1:32pm reports Patient is refusing visit today but sister states she's feeling okay just sleeping. Tobacco dependence 10/13/2016 DX:Tobacco de pendence History of cardiac cath 11/05/2018 DX:Histo ry of cardiac cath; COMMENT: via R radial, no CAD just luminal irregularities ([facility]) Lumbago 11/26/2019 DX:Lumbago Prediabetes 03/01/2020 DX:Prediabetes Hypertriglyceridemia 03/01/2020 DX:Hypertri glyceridemia Adenomatous polyp of colon 02/23/2016 DX:Ad enomatous polyp of colon Anxiety Chronic pain disorder Family History Medical History Relation Name Comments No Known Problems Brother x 19 4 Colon cancer Father 40s Other cancer Mother lymph nodes Other: cancer unknown Sister x8 3 No Known Problems Son Relation Name Status Comments Brother x 19 4 x5 are livin g, one of gunshot Father (Age 60's) HTN, d in motorcycle accident Mother (Age 60's) Cancer o f lymph nodes Sister x8 3 x4are living, one of throat cancer, one in MVA Son Alive Social History Tobacco Use Types Packs/Day Years [...] for your loved ones. For example, child welfare manager or elderly care for an older adult? [...] Orientation Straight 08/11/2024 10 :42 AM EDT Obstetrics History Para Term AB IAB SAB Ectopic Multiple Livin g Live Births 1 Last Filed Vital Signs Vital Sign Reading Time Taken Comments Blood Pressure 134/80 02/10/2025 2:29 PM EDT Pulse 94 02/10/2025 2:29 PM EDT Temperature 36.9 C (98.5 F) 02/10/2025 2:29 PM EDT Respiratory Rate 18 02/10/2025 2:29 PM EDT Oxygen Saturation 96% 02/10/2025 2:2 9 PM EDT with 2Lof oxygen Inhaled Oxygen Concentration - - Weight 78.6 kg (173 lb 3.2 oz) 02/10/2025 2:29 PM EDT Height 160 cm (5' 3 ) 02/10/2025 2:29 PM EDT Body Mass Index 30.68 02/10/2025 2:29 PM EDT Plan of Treatment Upcoming Encounters Date Type Department Care Team (Late st Contact Info) Description 03/31/2025 12:40 PM EST Office Visit [facility] - [facility] [address] [place] [phone] Juan Schneider NP [address] [place] [address] Dr [address] [place] [phone] 04/14/2025 2:20 PM EST Office Visit Pulmonology - [place] [address] [place] [phone] Iman Rosado, NKECHI [address] [facility] [phone] Health Maintenance Due Date Last Done Comments Zoster Vaccines (1 of 2) 12/08/2007 Medicare Annual Wellness Visit 05/06/2022 COVID-19 Vaccine ( season) 2025 04/04/2022, 04/04/2022, 12/19/2021, Additional history exists Social Influencers of Health Screening 10/22/2025 10/22/2024 Falls Risk Assessment 01/23/2026 01/23/2025, 025 Hypertension/CHF/CAD Annual BMP Blood Test 03/23/2026 03/23/2025, 03/16/2025, 03/11/2025, Additional history exists DTaP,Tdap,and Td Vaccines (5 - Td or Tdap) 11/13/2026 11/13/2016, 01/21/2016, 10/22/2003, Additional history exists Breast Cancer Screening 12/26/2026 12/27/19, 03/22/2023, 11/18/2018, Additional history exists Cholesterol Screening (Lipid Panel) 12/25/2029 12/25/2024, 03/13/2023 Colorectal Cancer Screening: Colonoscopy 01/23/2030 01/23/2025, 02/10/2016, 11/17/2008 Osteoporosis Screening (Bone Density Screening) 12/26/2034 12/26/2024 Hepatitis C Screening Completed 02/27/2020 Abdominal Aortic Aneurysm (AAA) Screen Discontinued 12/18/2023 Influenza Vaccine Completed 01/16/2025, , 04/24/2023, Additional history exists Pneumococcal Vaccine: 50+ Years Completed 01/16/2025, 04/24/2023, 04/24/2023, Additional history exists RSV Immunization Adult Patients Completed 01/16/2025 Lung Cancer Screening (Low Dose CT) Discontinued 01/21/2025 Depression Screening Completed 01/29/2025 HIB Vaccines Aged Out No longer eligi ble based on patient's age to complete this topic HPV Vaccines Aged Out No longer eligi ble based on patient's age to complete this topic Hepatitis A Vaccines Aged Out No long er eligible based on patient's age to complete this topic Hepatitis B Vaccines Aged Out No long er eligible based on patient's age to complete this topic IPV Vaccines Aged Out No longer eligi ble based on patient's age to complete this topic MMR Vaccines Aged Out No longer eligi ble based on patient's age to complete this topic Meningococcal ACWY Vaccine Aged Out N o longer eligible based on patient's age to complete this topic Meningococcal B Vaccine Aged Out No l onger eligible based on patient's age to complete this topic RSV Immunization Patients Under 20 months Aged Out No longer eligible based on patient's age to complete this topic Varicella Vaccines Aged Out No longer eligible based on patient's age to complete this topic Procedures Procedure Name Priority Date/Time Associated Diagnosis Comments BASIC METABOLIC PANEL Routine 03/23/2025 5:58 AM EDT Chronic obstructive pulmonary disease, unspecified (CMS/HCC V24, CMS/HCC V28) COMPLETE BLOOD COUNT Routine 03/23/2025 5:58 AM EDT Chronic obstructive pulmonary disease, unspecified (CMS/HCC V24, CMS/HCC V28) COMPLETE BLOOD COUNT Routine 03/16/2025 5:55 AM EDT Chronic obstructive pulmonary disease, unspecified (CMS/HCC V24, CMS/HCC V28) BASIC METABOLIC PANEL Routine 03/16/2025 5:55 AM EDT Chronic obstructive pulmonary disease, unspecified (CMS/HCC V24, CMS/HCC V28) COMPREHENSIVE METABOLIC PANEL Routine 03/11/2025 5:15 AM EDT Chronic obstructive pulmonary disease, unspecified (CMS/HCC V24, CMS/HCC V28) COMPLETE BLOOD COUNT Routine 03/11/2025 5:15 AM EDT Chronic obstructive pulmonary disease, unspecified (CMS/HCC V24, CMS/HCC V28) BASIC METABOLIC PANEL Routine 02/10/2025 3:15 PM EDT ABDIEL (acute kidney injury) (CMS/HCC V24) RHEUMATOID FACTOR Routine 02/10/2025 3:1 5 PM EDT Diffuse arthralgia URIC ACID Routine 02/10/2025 3:15 PM EDT Diffuse arthralgia BORRELIA BURGDORFERI ANTIBODY Routine 02/10/2025 3:15 PM EDT Diffuse arthralgia AMBAR IFA WITH TITER AND PATTERN Routine 02/10/2025 3:15 PM EDT Diffuse arthralgia SEDIMENTATION RATE Routine 02/10/2025 3: 15 PM EDT Diffuse arthralgia COLONOSCOPY Routine 01/23/2025 11:05 AM EDT Colon cancer screening TISSUE EXAM Routine 01/23/2025 10:56 AM EDT Colon cancer screening CT LUNG SCREENING Routine 01/21/2025 2:0 4 PM EDT Personal history of nicotine dependence Encounter for screening for malignant neoplasm of respiratory organs BD BONE DENSITY DXA AXIAL SKELETON Routine 12/26/2024 2:26 PM EDT Menopause MG MAMMO DIGITAL SCREENING W ABIMAEL BILAT Routine 12/26/2024 1:57 PM EDT Encounter for screening mammogram for malignant neoplasm of breast ECG Routine 12/25/2024 1:35 PM EDT HEMOGLOBIN A1C Routine 12/25/2024 1:16 PM EDT Prediabetes THYROID STIMULATING HORMONE WITH REFLEX TO FREE T4 AND FREE T3 Routine 12/25/2024 1:16 PM EDT Anxiety LIPID PANEL WITH REFLEX TO DIRECT LDL Routine 12/25/2024 1:16 PM EDT Hypertension, unspecified type VITAMIN D 25 HYDROXY Routine 12/25/2024 1:16 PM EDT Vitamin D deficiency [id number] Routine 12/25/2024 1 :16 PM EDT Chronic obstructive pulmonary disease, unspecified COPD type ([facility]/HCC V24, CMS/HCC V28) Severe persistent asthma without complication ([facility]/HCC V28) HEPATITIS C SCREENING Routine 02/27/2020 from Last 3 Months or Most Recently Relevant to Health Maintenance Results * (ABNORMAL) Complete blood count (03/23/2025 5:58 AM EDT) Only the most recent of3 resultswithin the time period is included. [facility] WBC 5.6 4.8 - 10.8 K/mcL LAB HEMETOLOGY METHOD 03/23/2025 12:27 PM [facility] RBC 3.60(L) 3.80 - 4.80 M/mcL LAB HEMETOLOGY METHOD 03/23/2025 12:27 PM [facility] Hemoglobin 10.6(L) 11.5 - 16.0 g/dL LAB HEMETOLOGY METHOD 03/23/2025 12:27 PM [facility] Hematocrit 34.4(L) 35.0 - 47.0 % LAB HEMETOLOGY METHOD 03/23/2025 12:27 PM [facility] MCV 95.0 79.0 - 98.0 FL LAB HEMETOLOGY METHOD 03/23/2025 12:27 PM [facility] MCH 29.3 27.0 - 32.0 pcg LAB HEMETOLOGY METHOD 03/23/2025 12:27 PM [facility] MCHC 30.8(L) 32.0 - 37.0 g/dL LAB HEMETOLOGY METHOD 03/23/2025 12:27 PM [facility] RDW 16.3(H) 11.0 - 15.0 % LAB HEMETOLOGY METHOD 03/23/2025 12:27 PM [facility] Platelets 277 130 - 400 K/mcL LAB HEMETOLOGY METHOD 03/23/2025 12:27 PM EDT [facility] MPV 8.8 7.0 - 11.0 FL LAB HEMETOLOGY METHOD 03/23/2025 12:27 PM EDT [facility] NRBC 0.0 <1.0 % LAB HEMETOLOGY METHOD 03/23/2025 12:27 PM EDT [facility] NRBC Absolute 0.00 <0.10 K/mcL LAB HEMETOLOGY METHOD 03/23/2025 12:27 PM EDT [facility] Blood Venous blood specimen / Unknown Venipuncture / Unknown 03/23/2025 5:58 AM EDT 03/23/2025 11:26 AM EDT us Ej Damon MD LAB BLOOD ORDERABLES Final Resul t [facility] [address] [place] [address], [place] [phone] * (ABNORMAL) Basic metabolic panel (03/23/2025 5:58 AM EDT) Only the most recent of3 resultswithin the time period is included. Sodium 141 133 - 145 mmol/L LAB CHEMISTRY METHOD 03/23/2025 1:52 PM [facility] Potassium 4.1 3.5 - 5.5 mmol/L LAB CHEMISTRY METHOD 03/23/2025 1:52 PM EDT [facility] Chloride 107 96 - 110 mmol/L LAB CHEMISTRY METHOD 03/23/2025 1:52 PM T [facility] CO2 27 21 - 32 mmol/L LAB CHEMISTRY METHOD 03/23/2025 1:52 PM EDT [facility] Anion Gap 7 3 - 11 LAB CHEMISTRY METHOD 03/23/2025 1:52 PM EDT [facility] Glucose 129(H) 70 - 100 mg/dL LAB CHEMISTRY METHOD 03/23/2025 1:52 PM EDT [facility] BUN 19 5 - 25 mg/dL LAB CHEMISTRY METHOD 03/23/2025 1:52 PM EDT [facility] Creatinine 0.98 0.50 - 1.10 mg/dL LAB CHEMISTRY METHOD 03/23/2025 1:52 PM EDT [facility] eGFR 63 >=60 mL/min/1. 73m2 LAB CHEMISTRY METHOD 03/23/2025 1:52 PM EDT [facility] Comment:Calculation based on the Chronic Kidney Disease Epidemiology Collaboration (CKD-EPI) equation refit without adjustment for race. BUN/Creatinine Ratio 19.4 LAB CHEMISTRY METHOD 03/23/2025 1:52 PM EDT [facility] Calcium 8.6 8.5 - 10.5 mg/dL LAB CHEMISTRY METHOD 03/23/2025 1:52 PM EDT [facility] Blood Venous blood specimen / Unknown Venipuncture / Unknown 03/23/2025 5:58 AM EDT 03/23/2025 11:26 AM EDT us Ej Damon MD LAB BLOOD ORDERABLES Final Resul t [facility] [address] [place] [address], * (ABNORMAL) Comprehensive metabolic panel (03/11/2025 5:15 AM EDT) Sodium 140 133 - 145 mmol/L LAB CHEMISTRY METHOD 03/11/2025 10:51 AM EDT [facility] Potassium 4.2 3.5 - 5.5 mmol/L LAB CHEMISTRY METHOD 03/11/2025 10:51 AM EDT [facility] Chloride 106 96 - 110 mmol/L LAB CHEMISTRY METHOD 03/11/2025 10:51 AM EDT [facility] CO2 28 21 - 32 mmol/L LAB CHEMISTRY METHOD 03/11/2025 10:51 AM [facility] Anion Gap 6 3 - 11 LAB CHEMISTRY METHOD 03/11/2025 10:51 AM [facility] Glucose 83 70 - 100 mg/dL LAB CHEMISTRY METHOD 03/11/2025 10:51 AM [facility] BUN 17 5 - 25 mg/dL LAB CHEMISTRY METHOD 03/11/2025 10:51 AM [facility] Creatinine 0.80 0.50 - 1.10 mg/dL LAB CHEMISTRY METHOD 03/11/2025 10:51 AM [facility] eGFR 81 >=60 mL/min/1. 73m2 LAB CHEMISTRY METHOD 03/11/2025 10:51 AM [facility] Comment:Calculation based on the Chronic Kidney Disease Epidemiology Collaboration (CKD-EPI) equation refit without adjustment for race. BUN/Creatinine Ratio 21.3 LAB CHEMISTRY METHOD 03/11/2025 10:51 AM [facility] Calcium 8.6 8.5 - 10.5 mg/dL LAB CHEMISTRY METHOD 03/11/2025 10:51 AM [facility] AST (SGOT) 21 10 - 42 unit/L LAB CHEMISTRY METHOD 03/11/2025 10:51 AM [facility] ALT (SGPT) 34 10 - 60 unit/L LAB CHEMISTRY METHOD 03/11/2025 10:51 AM [facility] Alkaline Phosphatase 54 42 - 121 unit/L LAB CHEMISTRY METHOD 03/11/2025 10:51 AM [facility] Total Protein 5.1(L) 6.0 - 8.0 g/dL LAB CHEMISTRY METHOD 03/11/2025 10:51 AM [facility] Albumin 2.9(L) 3.2 - 5.0 g/dL LAB CHEMISTRY METHOD 03/11/2025 10:51 AM [facility] Total Bilirubin 0.2 0.0 - 1.4 mg/dL LAB CHEMISTRY METHOD 03/11/2025 10:51 AM EDT [facility] Blood Venous blood specimen / Unknown Venipuncture / Unknown 03/11/2025 5:15 AM EDT 03/11/2025 9:37 AM EDT Ej Damon MD LAB BLOOD ORDERABLES Final Resul t Performing Organization Address [facility] Co de Phone Number [facility] [address] [place] [address], [place] [phone] * AMBAR IFA with titer and pattern (02/10/2025 3:15 PM EDT) AMBAR Negative Negative 02/11/2025 11:16 AM EDT [facility] Comment:AMBAR performed by ind irect immunofluorescence (IFA) using HEp-2 substrate. Blood Venous blood specimen / Unknown Venipuncture / Unknown 02/10/2025 3:15 PM EDT 02/10/2025 3:15 PM EDT Ethan Pérez MD LAB BLOOD ORDERABLES Debi l Result Performing Organization Address [facility] de Phone Number [facility] [address] [place] [address], [place] [phone] * Borrelia burgdorferi antibody (02/10/2025 3:15 PM EDT) Lyme Ab Negative Negative LAB CHEMISTRY METHOD 02/11/2025 10:19 AM EDT [facility] Comment: No laboratory evidence of infection with B. burgdorferi (Lyme disease). Negative results may occur in patients recently infected (<=14 days) with B. burgdorferi. If recent infection is suspected, repeat testing on a new sample collected in 7- 14 days is recommended. Blood Venous blood specimen / Unknown Venipuncture / Unknown 02/10/2025 3:15 PM EDT 02/10/2025 3:15 PM EDT Ethan Pérez MD LAB BLOOD ORDERABLES Debi l Result [facility] [address] [place] [address], [place] [phone] * Sedimentation rate (02/10/2025 3:15 PM EDT) [facility] Sed Rate 5 0 - 30 mm/hr LAB HEMETOLOGY METHOD 02/10/2025 6:30 PM EDT [facility] Blood Venous blood specimen / Unknown Venipuncture / Unknown 02/10/2025 3:15 PM EDT 02/10/2025 3:15 PM EDT Ethan Pérez MD LAB BLOOD ORDERABLES Dbei l Result Performing Organization Address City/[facility] Co de Phone Number [facility] [address] [place] [address], [place] [phone] * Rheumatoid factor (02/10/2025 3:15 PM EDT) [facility] Rheumatoid Factor <10.0 <15.0 I Unit/mL LAB CHEMISTRY METHOD 02/10/2025 6:33 PM EDT [facility] Blood Venous blood specimen / Unknown Venipuncture / Unknown 02/10/2025 3:15 PM EDT 02/10/2025 3:15 PM EDT Ethan Pérez MD LAB BLOOD ORDERABLES Debi l Result Performing Organization Address City/[facility]/ZIP Co de Phone Number [facility] [address] [place] [address], [place] [phone] * Uric acid (02/10/2025 3:15 PM EDT) Uric Acid 5.8 3.1 - 7.8 mg/dL LAB CHEMISTRY METHOD 02/10/2025 6:33 PM EDT [facility] Blood Venous blood specimen / Unknown Venipuncture / Unknown 02/10/2025 3:15 PM EDT 02/10/2025 3:15 PM EDT Ethan Pérez MD LAB BLOOD ORDERABLES Debi l Result [facility] ([facility]) [facility] [address] [place] [address], [place] [phone] * COLONOSCOPY Anesthesia - MAC; [facility] ENDOSCOPY (01/23/2025 11:05 AM EDT) Anatomical Region Laterality Modality Endoscopy 01/23/2025 10:3 1 AM EDT Impressions 01/23/2025 11:05 AM EDT - One 6 mm polyp in the proximal ascending colon, removed with a cold snare. Resected and retrieved. - One 4 mm polyp at the hepatic flexure, removed with a cold snare. Resected and retrieved. - One 5 mm polyp in the descending colon, removed with a cold snare. Resected and retrieved. - Medium-sized lipoma at the hepatic flexure. - Non-bleeding internal hemorrhoids. - The examination was otherwise normal on direct and retroflexion views. Recommendation: - Discharge patient to home. - Resume previous diet. - Continue present medications. - Await pathology results. - Repeat colonoscopy for surveillance based on pathology results. - Return to GI office PRN. Narrative 01/23/2025 11:05 AM EDT [facility] Patient Name: Shelby Wilkins Procedure Date: 01/23/2025 10:31 AM Date of : 1955 Age: 69 Room: ROOM 15 Gender: Female Note Status: Finalized Attending MD: Jonah Lopez MD, Procedure Date No Time: 01/23/2025 Procedure: Colonoscopy Indications: High risk colon cancer surveillance: Personal history of colonic polyps Providers: Jonah Lopez MD Referring MD: Jonah Lopez MD Medicines: Monitored Anesthesia Care Complications: No immediate complications. Estimated Blood Loss: Estimated blood loss: none. Procedure: Pre-Anesthesia Assessment: - ASA Grade Assessment: III - A patient with severe systemic disease. - After reviewing the risks and benefits, the patient was deemed in satisfactory condition to undergo the procedure. After I obtained informed consent, the scope was passed under direct vision. Throughout the procedure, the patient's blood pressure, pulse, and oxygen saturations were monitored continuously.The Olympus Pediatric Colonosocpe was introduced through the anus and advanced to the cecum, identified by appendiceal orifice and ileocecal valve. The colonoscopy was performed without difficulty. The patient tolerated the procedure well. The quality of the bowel preparation was good. Findings: A 6 mm polyp was found in the proximal ascending colon. The polyp was sessile. The polyp was removed with a cold snare. Resection and retrieval were complete. Estimated blood loss was minimal. A 4 mm polyp was found in the hepatic flexure. The polyp was sessile. The polyp was removed with a cold snare. Resection and retrieval were complete. Estimated blood loss was minimal. A 5 mm polyp was found in the descending colon. The polyp was sessile. The polyp was removed with a cold snare. Resection and retrieval were complete. Estimated blood loss was minimal. There was a medium-sized lipoma, 7 mm in diameter, at the hepatic flexure. Non-bleeding internal hemorrhoids were found during retroflexion. The hemorrhoids were small. The exam was otherwise without abnormality on direct and retroflexion views. Procedure Code(s): --- Professional --- 03280, Colonoscopy, flexible; with removal of tumor(s), polyp(s), or other lesion(s) by snare technique Diagnosis Code(s): --- Professional --- Z86.010, Personal history of colonic polyps D12.2, Benign neoplasm of ascending colon D12.3, Benign neoplasm of transverse colon (hepatic flexure or splenic flexure) D12.4, Benign neoplasm of descending colon CPT copyright 2020 [employer]. All rights reserved. The codes documented in this report are preliminary and upon hydraulic press servicer review may be revised to meet current compliance requirements. Jonah Lopez MD 01/23/2025 11:05:07 AM This report has been signed electronically.Jonah Lopez MD Number of Addenda: 0 Note Initiated On: 01/23/2025 10:31 AM Scope In: Scope Out: Endoscopy Department at [facility] - [address] [place] [phone] Procedure Note Jonah Lopez MD - 01/23/2025 [facility] Patient Name: Shelby Wilkins Procedure Date: 01/23/2025 10:31 AM Date of : 1955 Age: 69 Room: ROOM 15 Gender: Female Note Status: Finalized Attending MD: Jonah Lopez MD, Procedure Date No Time: 01/23/2025 Procedure: Colonoscopy Indications: High risk colon cancer surveillance: Personalhistory of colonic polyps Providers: Jonah Lopez MD Referring MD: Jonah Lopez MD Medicines: Monitored Anesthesia Care Complications: No immediate complications. Estimated Blood Loss: Estimated blood loss: none. Procedure: Pre-Anesthesia Assessment: - ASA Grade Assessment: III - A patient with severe systemic disease. - After reviewing the risks and benefits, thepatient was deemed in satisfactory condition to undergo the procedure. After I obtained informed consent, the scope was passed under direct vision. Throughout theprocedure, the patient's blood pressure, pulse, and oxygen saturations were monitored continuously.The Olympus Pediatric Colonosocpe was introduced through theanus and advanced to the cecum, identified byappendiceal orifice and ileocecal valve. The colonoscopy was performed without difficulty. The patient tolerated the procedure well. The quality of the bowel preparation was good. Findings: A 6 mm polyp was found in the proximal ascending colon. The polyp was sessile. The polyp was removed with a cold snare. Resection and retrieval were complete. Estimated blood loss was minimal. A 4 mm polyp was found in the hepatic flexure. The polyp was sessile. The polyp was removed with acold snare. Resection and retrieval were complete. Estimated blood loss was minimal. A 5 mm polyp was found in the descending colon. The polyp was sessile. The polyp was removed with acold snare. Resection and retrieval were complete. Estimated blood loss was minimal. There was a medium-sized lipoma, 7 mm in diameter,at the hepatic flexure. Non-bleeding internal hemorrhoids were found during retroflexion. The hemorrhoids were small. The exam was otherwise without abnormality ondirect and retroflexion views. Procedure Code(s): --- Professional --- 48550, Colonoscopy, flexible; with removal of tumor(s), polyp(s), or other lesion(s) by snare technique Diagnosis Code(s): --- Professional --- Z86.010, Personal history of colonic polyps D12.2, Benign neoplasm of ascending colon D12.3, Benign neoplasm of transverse colon (hepatic flexure or splenic flexure) D12.4, Benign neoplasm of descending colon CPT copyright 2020 [employer]. All rights reserved. The codes documented in this report are preliminary and upon hydraulic press servicer reviewmay be revised to meet current compliance requirements. Jonah Lopez MD 01/23/2025 11:05:07 AM This report has been signed electronically.Jonah Lopez MD Number of Addenda: 0 Note Initiated On: 01/23/2025 10:31 AM Scope In: Scope Out: Endoscopy Department at [facility] - [address] [place] [phone] IMPRESSION: - One 6 mm polyp in the proximal ascending colon, removed with a cold snare. Resected andretrieved. - One 4 mm polyp at the hepatic flexure, removedwith a cold snare. Resected and retrieved. - One 5 mm polyp in the descending colon, removedwith a cold snare. Resected and retrieved. - Medium-sized lipoma at the hepatic flexure. - Non-bleeding internal hemorrhoids. - The examination was otherwise normal on directand retroflexion views. Recommendation: - Discharge patient to home. - Resume previous diet. - Continue present medications. - Await pathology results. - Repeat colonoscopy for surveillance based on pathology results. - Return to GI office PRN. us Jonah Lopez MD GI~PROCEDURE ORDERABLES Final Result * Tissue exam (01/23/2025 10:56 AM EDT) Final Diagnosis A. Large Intestine, Right/Ascending Colon, polyp x1 via cold snare: - Tubular adenoma. B. Large intestine, Hepatic flexure, polyp x1 via cold snare: - Tubular adenoma. C. Large Intestine, Left/Descending Colon, polyp x1 via cold snare: - Tubular adenoma. 01/27/2025 9:55 AM EDT [facility] Gross Description A. Large Intestine, Right/Ascending Colon, polyp x1 via cold snare: Labeled ascending colon polyp x 1 . Received in formalin are six irregular live mucosal tissue fragments, each measuring approximately 0.2 cm in greatest dimension, which are wrapped in paper and submitted in toto in one cassette, six pieces, multiple levels on one slide. B. Large intestine, Hepatic flexure, polyp x1 via cold snare: Labeled hepatic flexure polyp x 1 . Received in formalin are two irregular live mucosal tissue fragments, each measuring approximately 0.2 cm in greatest dimension, which are wrapped in paper and submitted in toto in one cassette, two pieces, multiple levels on one slide. C. Large Intestine, Left/Descending Colon, polyp x1 via cold snare: Labeled descending colon polyp x 1 . Received in formalin is a 0.5 cm disrupted live mucosal tissue fragment which is wrapped in paper and submitted in toto in one cassette, one piece, multiple levels on one slide. THAO 01/27/2025 9:55 AM EDT [facility] Disclaimer Unless otherwise specified, all tissue is 10% NB formalin fixed and paraffin embedded. 01/27/2025 9:55 AM EDT [facility] Tissue Ascending colon structure / Unknown 01/23/2025 10:56 AM EDT 01/23/2025 12:47 PM EDT Tissue specimen (specimen) Structure of right colic flexure / Unknown 01/23/2025 10:57 AM EDT 01/23/2025 12:47 PM EDT Tissue specimen (specimen) Descending colon structure / Unknown 01/23/2025 10:59 AM EDT 01/23/2025 12:47 PM EDT us Jonah Lopez MD LAB PATHOLOGY ORDERABLES Debi newton Result [facility] [address] [place] [address], * CT Lung Screening (01/21/2025 2:04 PM EDT) Anatomical Region Laterality Modality Chest Computed Tomogra phy 01/27/2025 11:3 1 AM EDT Impressions 01/27/2025 11:45 AM EDT There is a new groundglass nodule in the posterior right upper lobe which measures 1.5 x 1.3 x 1.3 cm. Guidelines suggest nonsolid nodules measuring less than 30 mm should be reexamined in 12 months using low dose CT. LUNG RADS: Lung-RADS 2: BENIGN S Modifier (Significant or Potentially Significant Findings): None present No suspicious nonpulmonary findings. RECOMMENDATIONS: 12 month screening low dose CT -------- FINAL REPORT -------- Dictated By: Guille Melvin Dictated Date: 01/27/2025 11:31 ET Assigned Physician: Guille Melvin Reviewed and Electronically Signed By: Guille Melvin Signed Date: 01/27/2025 11:45 ET Workstation ID: [id number] Transcribed By: Self Edit Transcribed Date: 01/27/2025 11:31 ET Narrative 01/27/2025 11:45 AM EDT EXAMINATION: CT CHEST WITHOUT CONTRAST LUNG CANCER SCREENING, LOW DOSE CLINICAL INFORMATION: Lung cancer screening. Current smoker. COMPARISON: Portions of previous 03/20/23 TECHNIQUE: Multidetector CT. Examination of the chest. Examination of the chest without IV contrast. Reformatting in the coronal and sagittal planes. Device: [employer] DLP: 156 mGy-cm CTDI: 4.89 Dose optimization was performed including the use of low-dose iterative reconstruction technique with automatic exposure control based on patient size. Type of contrast: None Volume of IV contrast: None Volume of contrast discarded: 0 mL FINDINGS: LUNG: No abnormality of the trachea or mainstem bronchi. LUNG NODULES: There is a new mostly groundglass peripheral nodule at the extreme posterior aspect of the right upper lobe at the upper margin of the major fissure 01/21/25-1.5 x 1.3 x 1.3 cm (3/57) 03/20/23-not present The largest solid component is approximately 0.4 cm There is an unchanged 0.3 cm peripheral nodule in the posterolateral right lower lobe (3/172) There is a minor linear pleural associated opacity in the periphery of the right middle lobe likely pleural associated. Unchanged 0.2 cm peripheral nodule lateral left lower lobe (3/153) OTHER PULMONARY: There are mild areas of volume loss in the middle lobe and inferior lingula. MEDIASTINUM: There are no enlarged mediastinal or hilar lymph nodes. No suspicious abnormalities of the esophagus. CARDIAC: The heart is not enlarged. No pericardial fluid or thickening There are moderate coronary calcifications. VASCULAR: There is no thoracic aortic aneurysm. The main pulmonary artery is normal caliber PLEURA: There is no pleural fluid or pneumothorax AXILLA/CHEST WALL: There are prominent axillary lymph nodes. The most prominent on the left measures 1.0 cm in short axis. This has increased when compared to previous. VISUALIZED UPPER ABDOMEN: No suspicious abnormality on limited assessment of the visualized upper abdomen. Unchanged circumscribed low attenuating lesion in the anterolateral dome of hepatic segment 8 possibly a cyst. MUSCULOSKELETAL: No suspicious focal bony lesion demonstrated. Procedure Note Guille Melvin MD - 01/27/2025 EXAMINATION: CT CHEST WITHOUT CONTRAST LUNG CANCER SCREENING, LOW DOSE CLINICAL INFORMATION: Lung cancer screening. Current smoker. COMPARISON: Portions of previous 03/20/23 TECHNIQUE: Multidetector CT. Examination of the chest. Examination of the chest without IV contrast. Reformatting in the coronal and sagittal planes. Device: [employer] [facility] DLP: 156 mGy-cm CTDI: 4.89 Dose optimization was performed including the use of low-dose iterativereconstruction technique with automatic exposure control based on patientsize. Type of contrast: None Volume of IV contrast: None Volume of contrast discarded: 0 mL FINDINGS: LUNG: No abnormality of the trachea or mainstem bronchi. LUNG NODULES: There is a new mostly groundglass peripheral nodule at the extremeposterior aspect of the right upper lobe at the upper margin of the majorfissure 01/21/25-1.5 x 1.3 x 1.3 cm (3/57) 03/20/23-not present The largest solid component is approximately 0.4 cm There is an unchanged 0.3 cm peripheral nodule in the posterolateral rightlower lobe (3/172) There is a minor linear pleural associated opacity in the periphery of theright middle lobe likely pleural associated. Unchanged 0.2 cm peripheral nodule lateral left lower lobe (3/153) OTHER PULMONARY: There are mild areas of volume loss in the middle lobeand inferior lingula. MEDIASTINUM: There are no enlarged mediastinal or hilar lymph nodes. Nosuspicious abnormalities of the esophagus. CARDIAC: The heart is not enlarged. No pericardial fluid or thickening There are moderate coronary calcifications. VASCULAR: There is no thoracic aortic aneurysm. The main pulmonary arteryis normal caliber PLEURA: There is no pleural fluid or pneumothorax AXILLA/CHEST WALL: There are prominent axillary lymph nodes. The mostprominent on the left measures 1.0 cm in short axis. This has increasedwhen compared to previous. VISUALIZED UPPER ABDOMEN: No suspicious abnormality on limited assessmentof the visualized upper abdomen. Unchanged circumscribed low attenuatinglesion in the anterolateral dome of hepatic segment 8 possibly a cyst. MUSCULOSKELETAL: No suspicious focal bony lesion demonstrated. IMPRESSION: There is a new groundglass nodule in the posterior right upper lobe whichmeasures 1.5 x 1.3 x 1.3 cm. Guidelines suggest nonsolid nodules measuring less than 30 mm should bereexamined in 12 months using low dose CT. LUNG RADS: Lung-RADS 2: BENIGN S Modifier (Significant or Potentially Significant Findings): Nonepresent No suspicious nonpulmonary findings. RECOMMENDATIONS: 12 month screening low dose CT -------- FINAL REPORT -------- Dictated By: Guille Melvin Dictated Date: 01/27/2025 11:31 ET Assigned Physician: Guille Melvin Reviewed and Electronically Signed By: Guille Melvin Signed Date: 01/27/2025 11:45 ET Workstation ID: [id number] Transcribed By: Self Edit Transcribed Date: 01/27/2025 11:31 ET us Kaylie Ruff MD IMG CT PROCEDURES Final Result * BD Bone Density DXA Axial Skeleton (12/26/2024 2:26 PM EDT) Anatomical Region Laterality Modality Wrist, Hip, L-spine Bone Densito metry 12/26/2024 6:59 PM EDT Impressions 12/26/2024 7:00 PM EDT Osteopenia. Nhan SPENCER ([id number]) -------- FINAL REPORT -------- Dictated By: Karen Gagnon Dictated Date: 12/26/2024 18:59 ET Assigned Physician: Karen Gagnon Reviewed and Electronically Signed By: Karen Gagnon Signed Date: 12/26/2024 19:00 ET Workstation ID: [id number] Transcribed By: Self Edit Transcribed Date: 12/26/2024 18:59 ET Narrative 12/26/2024 7:00 PM EDT History: Low estrogen state due to menopause. Current smoker. Comparison: No comparison study at this institution. Findings: Bone densitometry is performed utilizing dual energy x-ray absorptiometry (DXA) in the [employer] unit. The lumbar spine and proximal femora are evaluated in the AP projection. The FRAX questionaire was completed. The results indicate low bone mass (osteopenia), with bilateral femoral neck T- scores of -2.3. The Z score is -2.1, indicating very low bone mineral density for age. The detailed DEXA report will be mailed to the referring physician's office. DualFemur FRAX: 10-year Probability of Fracture: Major Osteoporotic 6.0 percent Hip 1.8 percent. Procedure Note Karen Gagnon MD - 12/26/2024 History: Low estrogen state due to menopause. Current smoker. Comparison: No comparison study at this institution. Findings: Bone densitometry is performed utilizing dual energy x-ray absorptiometry(DXA) in the [employer] unit. The lumbar spine and proximal femora areevaluated in the AP projection. The FRAX questionaire was completed. The results indicate low bone mass (osteopenia), with bilateral femoralneck T- scores of -2.3. The Z score is -2.1, indicating very low bonemineral density for age. The detailed DEXA report will be mailed to thereferring physician's office. DualFemur FRAX: 10-year Probability of Fracture: Major Osteoporotic 6.0percent Hip 1.8 percent. IMPRESSION: Osteopenia. Nhan SPENCER ([id number]) -------- FINAL REPORT -------- Dictated By: Karen Gagnon Dictated Date: 12/26/2024 18:59 ET Assigned Physician: Karen Gagnon Reviewed and Electronically Signed By: Karen Gagnon Signed Date: 12/26/2024 19:00 ET Workstation ID: [id number] Transcribed By: Self Edit Transcribed Date: 12/26/2024 18:59 ET Ethan Pérez MD IMG DXA PROCEDURES Final Result * MG Mammo Digital Screening w Abimael bilat (12/26/2024 1:57 PM EDT) Anatomical Region Laterality Modality Breast Bilateral Mammography 12/29/2024 7:56 AM EDT Impressions 12/29/2024 8:02 AM EDT No mammographic evidence of malignancy. A negative mammogram in the presence of a clinically suspicious palpable abnormality does not preclude the possibility of malignancy or alter the indications for biopsy. PQRI CPT II 3342F Code 01284, 75822 PQRI 225 CPT II 7025F TISSUE DENSITY: There are scattered areas of fibroglandular density. (BI-RADS category B) IMPRESSION: Benign. BI-RADS CATEGORY: 2 - BENIGN RECOMMENDATION: Screening bilateral mammogram is recommended in 1 year. Mammo Location: [facility], [address] [place] [address] -------- FINAL REPORT -------- Dictated By: John Toscano Dictated Date: 12/29/2024 07:56 ET Assigned Physician: John Toscano Reviewed and Electronically Signed By: John Toscano Signed Date: 12/29/2024 08:02 ET Workstation ID: [id number] Transcribed By: Self Edit Transcribed Date: 12/29/2024 07:56 ET Narrative 12/29/2024 8:02 AM EDT CLINICAL: The patient is a 69 years Female presenting for routine screening mammography. COMPARISON: Most recently 03/21/2023 and most remotely 03/15/2016. TECHNIQUE: Full-field digital mammography of the breasts bilaterally consisting of tomosynthesis in MLO and CC projection is performed in the [employer] 2000-D unit. Computer aided detection utilizing the iCAD system was utilized. FINDINGS: The breasts are seen to be composed of a combination of fatty and fibroglandular elements. Scattered benign calcifications are noted bilaterally. There is no suspicious cluster of microcalcifications, mass, or area of architectural distortion. There is no skin thickening or nipple retraction. Procedure Note John Toscano MD - 12/29/2024 CLINICAL: The patient is a 69 years Female presenting for routinescreening mammography. COMPARISON: Most recently 03/21/2023 and most remotely 03/15/2016. TECHNIQUE: Full-field digital mammography of the breasts bilaterallyconsisting of tomosynthesis in MLO and CC projection is performed in the[employer] Sen[employer] 2000-D unit. Computer aided detection utilizing the iCADsystem was utilized. FINDINGS: The breasts are seen to be composed of a combination of fattyand fibroglandular elements. Scattered benign calcifications are notedbilaterally. There is no suspicious cluster of microcalcifications, mass,or area of architectural distortion. There is no skin thickening or nippleretraction. IMPRESSION: No mammographic evidence of malignancy. A negative mammogram in the presence of a clinically suspicious palpableabnormality does not preclude the possibility of malignancy or alter theindications for biopsy. PQRI CPT II 3342F Code 28363, 73432 PQRI 225 CPT II 7025F TISSUE DENSITY: There are scattered areas of fibroglandular density.(BI-RADS category B) IMPRESSION: Benign. BI-RADS CATEGORY: 2 - BENIGN RECOMMENDATION: Screening bilateral mammogram is recommended in 1 year. Mammo Location: [facility], [address] [place] [id number] -------- FINAL REPORT -------- Dictated By: John Toscano Dictated Date: 12/29/2024 07:56 ET Assigned Physician: John Toscano Reviewed and Electronically Signed By: John Toscano Signed Date: 12/29/2024 08:02 ET Workstation ID: [id number] Transcribed By: Self Edit Transcribed Date: 12/29/2024 07:56 ET Ethan Pérez MD IMG BI PROCEDURES Final R esult * ECG (12/25/2024 1:35 PM EDT) Historical Provider ECG ORDERABLES Final Res ult * Thyroid stimulating hormone with reflex to free t4 and free t3 (12/25/2024 1:16 PM EDT) [facility] TSH 1.09 0.40 - 4.00 mcIU/mL LAB CHEMISTRY METHOD 12/25/2024 8:27 PM EDT [facility] Blood Venous blood specimen / Unknown Venipuncture / Unknown 12/25/2024 1:16 PM EDT 12/25/2024 1:16 PM EDT Ethan Pérez MD LAB BLOOD ORDERABLES Debi l Result [facility] [address] [place] [address], [place] [phone] * Lipid panel with reflex to direct LDL (12/25/2024 1:16 PM EDT) [facility] Cholesterol 170 0 - 200 mg/dL LAB CHEMISTRY METHOD 12/25/2024 7:01 PM EDT [facility] Triglycerides 96 0 - 150 mg/dL LAB CHEMISTRY METHOD 12/25/2024 7:01 PM EDT [facility] HDL 68 >=40 mg/dL LAB CHEMISTRY METHOD 12/25/2024 7:01 PM EDT [facility] LDL Calculated 83 0 - 100 mg/dL LAB CHEMISTRY METHOD 12/25/2024 7:01 PM EDT [facility] VLDL Cholesterol Lawrence 19.2 mg/dL LAB CHEMISTRY METHOD 12/25/2024 7:01 PM EDT [facility] Non HDL Chol. (LDL+VLDL) 102 <145 mg/dL LAB CHEMISTRY METHOD 12/25/2024 7:01 PM EDT [facility] Chol/HDL Ratio 2.5 0.0 - 4.4 LAB CHEMISTRY METHOD 12/25/2024 7:01 PM EDT [facility] Blood Venous blood specimen / Unknown Venipuncture / Unknown 12/25/2024 1:16 PM EDT 12/25/2024 1:16 PM EDT Ethan Pérez MD LAB BLOOD ORDERABLES Debi l Result Performing Organization Address City/[facility]/ZIP Co de Phone Number [facility] [address] [place] [address], [place] [phone] * [id number] (12/25/2024 1:16 PM EDT) A-1 Antitrypsin 135 90 - 200 mg/dL LAB CHEMISTRY METHOD 12/25/2024 6:58 PM EDT [facility] Blood Venous blood specimen / Unknown Venipuncture / Unknown 12/25/2024 1:16 PM EDT 12/25/2024 1:16 PM EDT Iman Rosado [employer] OFFICER LAB BLOOD ORDERABLES Fi nal Result Performing Organization Address [facility]/ZIP Co de Phone Number [facility] [address] [place] [address], [place] [phone] * (ABNORMAL) Vitamin D 25 hydroxy (12/25/2024 1:16 PM EDT) Vit D, 25-Hydroxy 15.2(L) 30.0 - 80.0 ng/mL LAB CHEMISTRY METHOD 12/25/2024 8:27 PM EDT [facility] Blood Venous blood specimen / Unknown Venipuncture / Unknown 12/25/2024 1:16 PM EDT 12/25/2024 1:16 PM EDT Ethan Pérez MD LAB BLOOD ORDERABLES Debi l Result Performing Organization Address [facility]/ZIP Co de Phone Number [facility] [address] [place] [address], [place] [phone] * Hemoglobin A1c (12/25/2024 1:16 PM EDT) [facility] Hemoglobin A1C 5.8 <6.5 % LAB CHEMISTRY METHOD 12/25/2024 9:54 PM EDT [facility] Mean Bld Glu Estim. 120 mg/dL LAB CHEMISTRY METHOD 12/25/2024 9:54 PM EDT [facility] Blood Venous blood specimen / Unknown Venipuncture / Unknown 12/25/2024 1:16 PM EDT 12/25/2024 1:16 PM EDT Ethan Pérez MD LAB BLOOD ORDERABLES Debi l Result Performing Organization Address [facility]/ZIP Co de Phone Number [facility] [address] [place] [address], [place] [phone] * Hepatitis C Screening (02/27/2020) [facility] Hepatitis C Screening negative Historical Provider HEALTH MAINTENANCE Final Result from Last 3 Months or Most Recently Relevant to Health Maintenance Insurance [facility] MEDIC[facility] Member Subscriber Plan / Payer (Ef fective 2024-Present) Name:Shelby Wilkins Relation to Subscriber:Self Name:Shelby Wilkins Payer ID:[id number] Group ID:[id number] Type:Not on file Address: [facility] [address] [address] Advance Directives Documents on File Type Date Recorded Patient Pizza Driver Expl anation Health Care Decision (hx) 08/30/2021 AD ALBERTS DIRECTIVE Health Care Decision (hx) 08/30/2021 AD ALBERTS DIRECTIVE Health Care Decision (hx) 08/30/2021 AD ALBERTS DIRECTIVE Health Care Decision (hx) 08/30/2021 AD ALBERTS DIRECTIVE Health Care Decision (hx) 08/30/2021 AD ALBERTS DIRECTIVE Health Care Decision (hx) 08/30/2021 AD ALBERTS DIRECTIVE Health Care Decision (hx) 08/30/2021 AD ALBERTS DIRECTIVE Health Care Decision (hx) 08/30/2021 AD ALBERTS DIRECTIVE Health Care Decision (hx) 08/30/2021 AD ALBERTS DIRECTIVE Health Care Decision (hx) 08/30/2021 AD ALBERTS DIRECTIVE Health Care Decision (hx) 08/30/2021 AD ALBERTS DIRECTIVE Health Care Decision (hx) 08/30/2021 AD ALBERTS DIRECTIVE Health Care Decision (hx) 08/30/2021 AD ALBERTS DIRECTIVE Health Care Decision (hx) 08/30/2021 AD ALBERTS DIRECTIVE Health Care Decision (hx) 08/30/2021 AD ALBERTS DIRECTIVE * Full Code - Default (Latest Code Status on File) Date Activated Date Inactivated Comments 08/11/2024 10:49 AM 08/11/2024 5:02 PM This is ord er is used when code status has not been discussed with the patient, or code status is otherwise unknown/unconfirmed To update the patient's code status, place a code status order. Do not modify or discontinue any currently active code status orders. * Full Code - Default Date Activated Date Inactivated Comments 05/05/2024 1:50 PM 05/08/2024 3:32 PM This is ord er is used when code status has not been discussed with the patient, or code status is otherwise unknown/unconfirmed To update the patient's code status, place a code status order. Do not modify or discontinue any currently active code status orders. Healthcare Agents on File Name Relationship Healthcare Agent Relationshi p Communication Robe [facility] Care Agent [phone] (Mobile) Care Teams Hull Grinder Relationship Specialty Start Date End Date Alice Trinh MD [address] [place] [phone] PCP - General Internal Medicine 02/24/25
--- OUTSIDE RECORDS SUMMARY | 2025-03-24 18:19 | XMS_ITS | Clinical Summary ---
Author Organization [facility] Address [address] [place] [address] Care Team Providers Care Incident Response Specialist Name Role Phone Unavailable Primary Care Provider Unavailabl e Source Comments PLEASE NOTE, if this patient is a minor, it may be UNLAWFUL to discuss sensitive information that is contained in these records (such as FAMILY PLANNING, MENTAL HEALTH or SUBSTANCE ABUSE) with the minor patient's parent or other person without the patient's specific authorization.[facility] Social History Tobacco Use Types Packs/Day Years Used Date Smoking Tobacco: Never Assessed Social Connections Answer Date Recorded Social Connections and Isolation 0 06/06/2023 Financial Resource Strain Answer Date R ecorded Financial Resource Strain 0 2023 Stress Answer Date Recorded Stress 0 06/06/2023 Physical Activity Answer Date Recorded Physical Activity 0 06/06/2023 Food Insecurity Answer Date Recorded Food 0 06/06/2023 Transportation Needs Answer Date Record ed Transportation 0 06/06/2023 Housing Stability Answer Date Recorded Housing 0 06/06/2023 Safety and Environment Answer Date Kobe rded Safety 0 06/06/2023 Utilities Answer Date Recorded Utilities 0 06/06/2023 Employment Answer Date Recorded Employment 0 06/06/2023 Comments Unknown Sex and Gender Information Value Date Recorded Sex Assigned at Not on file Legal Sex Female 9:59 AM PDT Gender Identity Not on file Sexual Orientation Not on file Plan of Treatment Not on file Insurance [place] MEDICA[place] DENTAL [facility] NET DENTAL
--- OUTSIDE RECORDS SUMMARY | 2025-03-24 18:19 | XMS_ITS | Encounter Summary ---
Author Organization [facility] Address [address] [place] [address] Care Team Providers Care Service Tester Name Role Phone Alice Trinh MD Primary Care Provider [phone] Reason for Visit * Reason Onset Date Comments Results 02/19/2025 Encounter Details Date Type Department Care Team (Late st Contact Info) Description 02/19/2025 Telephone Internal Medicine - [place] [address] [place] [phone] Maryjane Watters MA Social History Tobacco Use Types Packs/Day Years [...] care for your loved ones. For example, childcare provider or elderly care for an older adult? [...] as of this encounter Progress Notes * Maryjane Watters MA - 02/19/2025 10:36 AM EDT Lvm to return call forward to ext [phone] or B side * Maryjane Watters MA - 02/19/2025 10:36 AM EDT ----- Message from Christel Crane NP sent at 02/18/2025 12:47 PM EDT ----- Please notify patient of lab results note. Please a patient of a MyChart so that they can get updated results please. Thank you. documented in this encounter Plan of Treatment Upcoming Encounters Date Type Department Care Team (Late st Contact Info) Description 03/31/2025 12:40 PM EST Office Visit [facility] [address] [place] [address] [place] [phone] Juan Schneider NP [address] [place] [address] [address] [place] [phone] 04/14/2025 2:20 PM EST Office Visit Pulmonology - [place] [address] [place] [phone] Iman Rosado NP [address] [place] [phone] documented as of this encounter Visit Diagnoses Not on filedocumented in this encounter Additional Health Concerns Assessment Noted Time PHQ-9 Depression Total Score: 1 10/23/19 4:30 AM EDT documented as of this encounter Care Teams Service Tester Relationship Specialty Start Date End Date Alice Trinh MD [address] [place] [address] PCP - General Internal Medicine 02/24/25 documented as of this encounter
--- OUTSIDE RECORDS SUMMARY | 2025-03-24 18:19 | XMS_ITS | Encounter Summary ---
Author Organization [facility] Address [address] [place] [address] Care Team Providers Care Toy Assembly Supervisor Name Role Phone Alice Trinh MD Primary Care Provider [phone] Reason for Visit * Reason Onset Date Comments [facility]NA 03/05/2025 Encounter Details Date Type Department Care Team (Late st Contact Info) Description 03/05/2025 Telephone Internal Medicine - [place] [address] [place] [address] Alice Trinh MD [address] [place] [address] Social History Tobacco Use Types Packs/Day Years [...] for your loved ones. For example, child nurse or elderly care for an older adult? [...] as of this encounter Progress Notes * Ayana Rene RN - 03/05/2025 12:18 PM EDT FYI * Ayana Rene RN - 03/05/2025 12:15 PM EDT Spoke with [facility] nurse, given Son's phone number Robe she will reach out to him and will call back prn, and let office know if she reaches son/ pt. * Nicolette Brody - 03/05/2025 11:55 AM EDT VNA CALL Which [facility]NA office is calling? [facility] / Full name of caller: Mariela Keller The caller is A nurse Is the caller at the patients home?: no Reason for call: Cannot reach patient, refuse referral Does caller need an urgent call back? no Was CONTACT Telephone # obtained above?: yes Fax #: n/a documented in this encounter Plan of Treatment Upcoming Encounters Date Type Department Care Team (Late st Contact Info) Description 03/31/2025 12:40 PM EST Office Visit [facility] [address] [facility] [facility] [address] [place] [address] Juan Schneider NP [address] [place] [address] [address] [place] [phone] 04/14/2025 2:20 PM EST Office Visit Pulmonology - [place] [address] [place] [address] Iman Rosado NP [address] [place] [address] documented as of this encounter Visit Diagnoses Not on filedocumented in this encounter Additional Health Concerns Assessment Noted Time PHQ-9 Depression Total Score: 1 10/23/19 25 4:30 AM EDT documented as of this encounter Care Teams Toy Assembly Supervisor Relationship Specialty Start Date End Date Alice Trinh MD [address] [facility] [place] [address] PCP - General Internal Medicine 02/24/25 documented as of this encounter
== END 2025-03-24 14:30 | disposition home or self-care (01) ==
LOC: HO.HSM 13:57
PROVIDERS: PCP Internal Medicine; Referring Provider Internal Medicine; Visit Provider Psychiatry & Neurology Neurology
DX: G43.019 Migraine without aura, intractable, without status migrainosus (principal)
CPT/HCPCS: 99214

== ENCOUNTER → 2025-03-24 13:56 | Outpatient (BNVA) | payer OTHER, SELFPAY | PROVIDERS: PCP Internal Medicine; Referring Provider Internal Medicine; Visit Provider Psychiatry & Neurology Neurology | DX: G43.019 Migraine without aura, intractable, without status migrainosus (principal) | CPT/HCPCS: 99212 ==